=== PATIENT | female | born 1965 | race Hispanic/Latino ===

== ENCOUNTER 2016-06-01 18:46 | Emergency (ER) | payer MEDICARE ==
[2016-06-01 19:08] VITALS: BMI 25.0
[2016-06-01 19:09] VITALS: BP 120/77; PULSE 86; RESP 18; TEMP 98.7; O2SAT 97
--- NOTE | 2016-06-01 19:20 | ED PDOC ---
Arrival/HPI - General Time Seen by Provider: 06/01/16 19:07 Historian: Patient - History of Present Illness Narrative History of Present Illness (Text): 06/01/16 19:22 50 yo F c/o neck pain radiating to the top of her b/l shoulder after she slipped and fell 3 days ago. Denies any headache, LOC, nausea, back pain, shortness of breath, chest pain, numbness, weakness, decrease in range of motion. Patient has no other complaints at this time. PMD Daniella Past Medical History - Provider Review Nursing Documentation Reviewed: Yes - Infectious Disease Hx of Infectious Diseases: None - Tetanus Immunization Tetanus Immunization: Unknown - Past Medical History Past Medical History: No Previous - Cardiac Hx Cardiac Disorders: No Hx Pacemaker: No - Pulmonary Hx Respiratory Disorders: Yes (PLEURISY) Other/Comment: SMOKES 1 PPD OF CIGARETTES - Neurological Hx Neurological Disorder: No - HEENT Hx HEENT Disorder: No - Renal Hx Renal Disorder: No - Endocrine/Metabolic Hx Endocrine Disorders: No - Hematological/Oncological Hx Blood Disorders: No - Integumentary Hx Dermatological Disorder: No - Musculoskeletal/Rheumatological Hx Musculoskeletal Disorders: Yes Hx Falls: No Hx Fractures: Yes (RIGHT FOOT PAIN,COMPRESSION FX.) - Gastrointestinal Hx Gastrointestinal Disorders: No - Genitourinary/Gynecological Hx Genitourinary Disorders: Yes (2 MISCARRIAGE,3 CHILDREN) Other/Comment: BREAST CYST. - Psychiatric Hx Psychophysiologic Disorder: Yes (H/O OF ILLICIT SUBSTANCE ABUSE,ETOH ABUSE SHE IS IN A PROGRAM BEFORE.) Hx Anxiety: Yes Hx Bipolar Disorder: Yes Hx Depression: Yes Hx Emotional Abuse: No Hx Physical Abuse: No Hx Substance Use: Yes (H/O WAS IN A PROGRAM.CLEAN FOR 6-7-YRS) - Anesthesia Hx Anesthesia Reactions: No Hx Malignant Hyperthermia: No - Suicidal Assessment Feels Threatened In Home Enviroment: No Family/Social History - Physician Review Nursing Documentation Reviewed: Yes Family/Social History: No Known Family HX Smoking Status: Current Some Days Smoker Hx Alcohol Use: Yes (H/O WAS IN A PROGRA. CLEAN FOR 6-7 YRS) Hx Substance Use: Yes (H/O WAS IN A PROGRAM.CLEAN FOR 6-7-YRS) Hx Substance Use Treatment: No Allergies/Home Meds Allergies/Adverse Reactions: Allergies prednisone Allergy (Verified 10/08/15 11:51) HEADACHE Home Medications: Home Meds Medication Instructions Recorded Confirmed Clonazepam [Klonopin] 1 mg PO QAM 12/19/11 10/12/15 Albuterol Sulfate [Proair Hfa] 0.09 mg IH TID PRN 05/01/14 10/12/15 buPROPion XL [Wellbutrin XL] 450 mg PO QAM 05/01/14 10/12/15 Budesonide/Formoterol Fumarate 1 aer IH PRN PRN 01/16/15 10/12/15 [Symbicort 160-4.5 Mcg Inhaler] Klonopin 2 mg PO HS 10/08/15 10/12/15 [place] Carbonate 650 mg PO AMHS 10/08/15 10/12/15 Quetiapine Fumarate 450 mg PO HS 10/08/15 10/12/15 Review of Systems - Review of Systems Constitutional: Normal. absent: Fatigue, Weight Change, Fevers Respiratory: Normal. absent: SOB, Cough Cardiovascular: Normal. absent: Chest Pain, Palpitations Musculoskeletal: Normal. absent: Arthralgias, Back Pain Skin: Normal. absent: Rash, Pruritis Neurological: Normal. absent: Headache, Dizziness Physical Exam - Physical Exam Narrative Physical Exam (Text): 06/01/16 19:25 GENERAL APPEARANCE: Patient is awake, alert, oriented x 3, in no acute distress. SKIN: Warm, dry; (-) cyanosis. HEAD: (-) swelling and tenderness, with no palpable bony defect. EYES: (-) conjunctival pallor, (-) scleral icterus, (-) nystagmus. ENMT: Mucous membranes moist. (-) Arevalo's sign. TMs: (-) blood. Nose: (- ) tenderness, (-) rhinorrhea. No oral trauma. Pharynx clear. Airway patent: (-) stridor. Full ROM of mandible without pain. NECK: (-) midline tenderness, (+) paracervical tenderness with spasm, (-) stiffness, (-) lymphadenopathy. CHEST AND RESPIRATORY: (-) chest wall tenderness. Lungs: (-) rales, (-) rhonchi, (-) wheezes; breath sounds equal bilaterally. HEART AND CARDIOVASCULAR: (-) irregularity; (-) murmur, (-) gallop. ABDOMEN AND GI: Soft; (-) tenderness. BACK: (-) tenderness. EXTREMITIES: (-) deformity, (-) tenderness, (-) limitation of motion NEURO AND PSYCH: GCS=15. Mental status as above. Has full memory of episode; house mother: Pupils equal & reactive. EOMI. (-) facial asymmetry. Tongue and uvula midline. Strength 5/5 in all extremities. No gross sensory deficits. DTRs symmetric. Vital Signs Temp Pulse Resp BP Pulse Ox 06/01/16 19:08 98.7 F 86 18 120/77 97 Medical Decision Making ED Course and Treatment: 06/01/16 19:10 50 yo F c/o neck pain x 3 days after she slipped and fell. XR c spine ordered. Given tramadol po and flexeril po. XR cervical spine: (+) fracture of the spinous process of C7, no other acute findings, as read by PA Patient advised that official radiology read of XR is still pending and will call the patient if there is any discrepancy within 24 hours. Case d/w Dr. Bates, neuro surgeon, states that this type of fracture is stable and does not need any further intervention in the emergency room, does recommend a soft collar if the patient wishes to use, however will not improve the healing process and is only to be used for comfort, otherwise safe to d/c for outpatient follow up. X-ray results discussed with the patient. Based on history, exam and diagnostic results plan will be for outpatient follow-up with PMD. Prescription provided. Patient states she fully agrees with and understands discharge instructions. States that she agrees with the plan and disposition. Verbalized and repeated discharge instructions and plan. I have given the patient opportunity to ask any additional questions. Follow up with Dr. Chen 2 days without fail. Advised to take medication as prescribed. Return to the emergency room at any time for any new or worsening symptoms. - RAD Interpretation Radiology Orders: 06/01/16 19:09 CERVICAL SPINE >18YR W/OBLIQUE [RAD] Stat - Medication Orders Current Medication Orders: Discontinued Medications Cyclobenzaprine HCl (Flexeril) 10 mg PO STAT STA Stop: 06/01/16 20:05 Last Admin: 06/01/16 20:19 Dose: 10 MG Tramadol HCl (Ultram) 50 mg PO STAT STA Stop: 06/01/16 20:05 Last Admin: 03/19/17 20:19 Dose: 50 MG - PA / POLYSOMNOGRAPHY TECH / Resident Statement / has reviewed & agrees with the documentation as recorded. Disposition/Present on Arrival - Present on Arrival Any Indicators Present on Arrival: No History of DVT/PE: No History of Uncontrolled Diabetes: No Urinary Catheter: No History Surgical Site Infection Following: None - Disposition Have Diagnosis and Disposition been Completed?: Yes Diagnosis: Cervical strain, Spinous process fracture Disposition: HOME/ ROUTINE Disposition Time: 20:00 Patient Plan: Discharge Condition: GOOD Discharge Instructions (ExitCare): Cervical Strain (DC), Avulsion Fracture (ED) Print Language: CROATIAN Additional Instructions: Thank you for letting us take care of you today. You were treated for cervical strain. The emergency medical care you received today was directed at your acute symptoms. If you were prescribed any medication, please fill it and take as directed. It may take several days for your symptoms to resolve. Return to the Emergency Department if your symptoms worsen, do not improve, or if you have any other problems. Please contact your doctor in 2 days for re-evaluation and follow up. Bring any paperwork you were given at discharge with you along with any medications you are taking to your follow up visit. Our treatment cannot replace ongoing medical care by a primary care provider (PCP) outside of the emergency department. Thank you for allowing the [facility] team to be part of your care today. Prescriptions: Cyclobenzaprine [Cyclobenzaprine HCl] 10 mg PO TID PRN #15 tab PRN Reason: Muscle Spasm traMADol [Ultram] 50 mg PO TID #15 tab Referrals: Brennon Bates MD [Staff Provider] - Follow up with primary Mike Hammond MD [Primary Care Provider] - Follow up with primary Forms: WORK NOTE
--- NOTE | 2016-06-02 11:53 | RAD ---
PROCEDURE: Cervical Spine Radiographs. HISTORY: Pain. COMPARISON: None. FINDINGS: BONES: Alignment maintained. No fracture. Dens Intact. DISC SPACES: Moderate degenerative changes. Narrowing of the intervertebral disc space at C6-C7 associated with large anterior osteophyte formation. SOFT TISSUES: Normal. No prevertebral soft tissue swelling. OTHER FINDINGS: None. IMPRESSION: No evidence of acute displaced fracture or subluxation. Moderate degenerative changes more prominent at C6-C7. Osteophyte formation at C6-C7 associated with mild narrowing of the neural foramina bilaterally.
== END 2016-06-01 20:32 | disposition home or self-care (01) ==
LOC: ED 18:46
DX: S16.1XXA Strain of muscle, fascia and tendon at neck level, initial encounter (principal); S12.600A Unspecified displaced fracture of seventh cervical vertebra, initial encounter for closed fracture; W01.0XXA Fall on same level from slipping, tripping and stumbling without subsequent striking against object, initial encounter

== ENCOUNTER 2016-07-27 14:31 | Observation (INO) | payer MEDICARE ==
[2016-07-27 15:06] VITALS: BMI 24.3
[2016-07-27 16:08] LABS: ADD MANUAL DIFF? NO
[2016-07-27 16:12] LABS: BASO # 0.04 K/mm3 (0.0-2.0); BASO % 0.3 % (0.0-3.0); EOS # 0.2 (0.0-0.7); GRAN # 9.62 (1.4-6.5); GRAN % 79.2 % (50.0-68.0); HEMATOCRIT 37.7 % (36.0-48.0); LYMPH # 1.8 (1.2-3.4); LYMPH % 14.6 % (22.0-35.0); MEAN CORPUSCULAR HEMOGLOBIN 31.7 pg (25.0-35.0); MEAN CORPUSCULAR HGB CONC 33.4 g/dl (31.0-37.0); MEAN PLATELET VOLUME 9.3 fl (7.0-11.0); MONO # 0.5 (0.1-0.6); MONO % 3.9 % (1.0-6.0); PLATELET COUNT 523 10^3/uL (120.0-450.0); WHITE BLOOD COUNT 12.2 10^3/ul (4.5-11.0)
[2016-07-27 16:20] LABS: ALB/GLOB RATIO 1.3 (1.1-1.8); ALKALINE PHOSPHATASE 72 U/L (38-133); ALT/SGPT 31 U/L (7-56); AST/SGOT 24 U/L (15-39); BILIRUBIN,TOTAL 0.7 mg/dL (0.2-1.3); BLOOD UREA NITROGEN 12 mg/dL (7-21); CALCIUM 10.6 mg/dL (8.4-10.5); CARBON DIOXIDE 25 mmol/L (21-33); CHLORIDE 104 mmol/L (98-107); GFR AFRICAN-AMERICAN > 60; GLUCOSE,RANDOM 95 mg/dL (70-110); MAGNESIUM 2.2 mg/dL (1.7-2.2); POTASSIUM 4.1 mmol/L (3.6-5.0); SODIUM 139 mmol/L (132-148); TOTAL PROTEIN 7.7 g/dL (5.8-8.3)
[2016-07-27 16:34] LABS: TROPONIN I < 0.01 ng/mL
[2016-07-27 16:37] LABS: INR 0.98 (0.93-1.08); PARTIAL THROMBOPLASTIN TIME 28.3 Seconds (23.7-30.8)
[2016-07-27 17:17] LABS: PH,URINE 7.5 (4.7-8.0); URINE BILIRUBIN NEGATIVE (NEGATIVE); URINE BLOOD NEGATIVE (NEGATIVE); URINE GLUCOSE (UA) NEGATIVE (NEGATIVE); URINE KETONE NEGATIVE (NEGATIVE); URINE LEUKOCYTE ESTERASE SMALL Leu/uL (NEGATIVE); URINE PROTEIN NEGATIVE mg/dL (<30 mg/dL); URINE UROBILINOGEN 0.2 E.U./dL (<1 E.U./dL)
[2016-07-27 17:29] LABS: URINE APPEARANCE CLEAR (CLEAR)
--- NOTE | 2016-07-27 18:26 | ED PDOC ---
Arrival/HPI <Akash Sutton - Last Filed: 07/27/16 21:17> - General Historian: Patient <Marjorie Mak PA-C - Last Filed: 07/27/16 21:37> - General Chief Complaint: Chest Pain Time Seen by Provider: 07/27/16 14:59 - History of Present Illness Narrative History of Present Illness (Text): 07/27/16 18:23 Patient with past medical history of bipolar disorder and asthma, is also a smoker, reports sudden onset of chest pain described as pressure on the center of her chest radiating to her jaw, which started while she was shopping at [employer] today, her symptoms started 2 hours prior to arrival, here in the emergency room patient has no chest pain at this time only jaw pain. Patient reports having similar symptoms in the past ~1 year ago, states that she was hospitalized here, had a stress test which was normal and was diagnosed with possible pleurisy. Otherwise: (-) diaphoresis, (-) dyspnea, (-) pleuritic component, (-) ripping or tearing quality, (-) positional component, (-) exertional component, (-) dizziness, (-) syncope, (-) nausea, (-) vomiting, (-) calf swelling/pain, (-) recent travel, (-) fever, (-) cough, (-) headache, (-) neuro deficits. PMD Bennie Hammond Cardio: none (Marjorie Mak PA-C) Past Medical History - Provider Review Nursing Documentation Reviewed: Yes - Infectious Disease Hx of Infectious Diseases: None - Tetanus Immunization Tetanus Immunization: Unknown - Reproductive Menopause: Yes - Past Medical History Past Medical History: No Previous - Cardiac Hx Cardiac Disorders: No Hx Pacemaker: No - Pulmonary Hx Respiratory Disorders: Yes (PLEURISY) Other/Comment: SMOKES 1 PPD OF CIGARETTES - Neurological Hx Neurological Disorder: No - HEENT Hx HEENT Disorder: No - Renal Hx Renal Disorder: No - Endocrine/Metabolic Hx Endocrine Disorders: No - Hematological/Oncological Hx Blood Disorders: No - Integumentary Hx Dermatological Disorder: No - Musculoskeletal/Rheumatological Hx Musculoskeletal Disorders: Yes Hx Falls: No Hx Fractures: Yes (RIGHT FOOT PAIN,COMPRESSION FX.) - Gastrointestinal Hx Gastrointestinal Disorders: No - Genitourinary/Gynecological Hx Genitourinary Disorders: Yes (2 MISCARRIAGE,3 CHILDREN) Other/Comment: BREAST CYST. - Psychiatric Hx Psychophysiologic Disorder: Yes (H/O OF ILLICIT SUBSTANCE ABUSE,ETOH ABUSE SHE IS IN A PROGRAM BEFORE.) Hx Anxiety: Yes Hx Bipolar Disorder: Yes Hx Depression: Yes Hx Emotional Abuse: No Hx Physical Abuse: No Hx Substance Use: Yes (H/O WAS IN A PROGRAM.CLEAN FOR 6-7-YRS) - Anesthesia Hx Anesthesia Reactions: No Hx Malignant Hyperthermia: No - Suicidal Assessment Feels Threatened In Home Enviroment: No <Marjorie Mak PA-C - Last Filed: 07/27/16 21:37> Family/Social History - Physician Review Nursing Documentation Reviewed: Yes Family/Social History: Other (palpitations has a defibrillator) Smoking Status: Current Some Days Smoker Hx Alcohol Use: No (H/O WAS IN A PROGRA. CLEAN FOR 6-7 YRS) Hx Substance Use: Yes (H/O WAS IN A PROGRAM.CLEAN FOR 6-7-YRS) Hx Substance Use Treatment: No <Marjorie Mak PA-C - Last Filed: 07/27/16 21:37> Allergies/Home Meds <Akash Sutton - Last Filed: 07/27/16 21:17> <Marjorie Mak PA-C - Last Filed: 07/27/16 21:37> Allergies/Adverse Reactions: Allergies prednisone Allergy (Verified 10/08/15 11:51) HEADACHE Home Medications: Home Meds Medication Instructions Recorded Confirmed Clonazepam [Klonopin] 1 mg PO QAM 12/19/11 07/27/16 Albuterol Sulfate [Proair Hfa] 0.09 mg IH TID PRN 05/01/14 07/27/16 buPROPion XL [Wellbutrin XL] 450 mg PO QAM 05/01/14 07/27/16 Budesonide/Formoterol Fumarate 1 aer IH PRN PRN 01/16/15 07/27/16 [Symbicort 160-4.5 Mcg Inhaler] Klonopin 2 mg PO HS 10/08/15 07/27/16 [place] Carbonate 650 mg PO AMHS 10/08/15 07/27/16 Quetiapine Fumarate 450 mg PO HS 10/08/15 07/27/16 Naproxen [Naprosyn] 500 mg PO BID PRN 07/27/16 07/27/16 Review of Systems - Review of Systems Constitutional: Normal. absent: Fatigue, Weight Change, Fevers ENT: Normal. absent: Hearing Changes, Sinus Congestion Respiratory: Normal. absent: SOB, Cough Cardiovascular: Normal, Chest Pain. absent: Palpitations Gastrointestinal: Normal. absent: Abdominal Pain, Stool Changes, Appetite Changes Genitourinary Female: Normal. absent: Dysuria, Frequency, Hematuria Musculoskeletal: Normal. absent: Arthralgias, Back Pain, Neck Pain Skin: Normal. absent: Rash, Pruritis, Skin Lesions Neurological: Normal. absent: Headache, Dizziness, Focal Weakness <Marjorie Mak PA-C - Last Filed: 07/27/16 21:37> Physical Exam <Akash Sutton - Last Filed: 07/27/16 21:17> <Marjorie Mak PA-C - Last Filed: 07/27/16 21:37> - Physical Exam Narrative Physical Exam (Text): 07/27/16 18:27 GENERAL APPEARANCE: Patient is awake, alert, oriented x 3, in mild painful distress. SKIN: Warm, dry; (-) cyanosis. EYES: (-) conjunctival pallor. ENMT: Mucous membranes moist. (+) Poor dentition, (-) tenderness to percussion of any of the teeth, (-) gingival swelling, (+) mild tenderness with (-) edema of the mandible. NECK: (-) tenderness, (-) stiffness, (-) lymphadenopathy, (-) JVD. CHEST AND RESPIRATORY: (-) rash, (-) chest wall tenderness. Lungs: (-) rales , (-) rhonchi, (-) wheezes, (-) rub; breath sounds equal bilaterally. HEART AND CARDIOVASCULAR: (-) irregularity; (-) murmur, (-) gallop, (-) rub. ABDOMEN AND GI: Soft; (-) distention, (-) tenderness, (-) palpable pulsatile mass. EXTREMITIES: (-) deformity; (-) edema, (-) calf tenderness. (+) distal pulses. NEURO AND PSYCH: Mental status as above. Cranial nerves grossly intact; strength symmetric. (Marjorie Mak PA-C.) Vital Signs Temp Pulse Resp BP Pulse Ox 07/27/16 21:33 70 17 119/67 98 07/27/16 19:04 64 18 116/65 97 07/27/16 17:13 66 18 118/68 97 07/27/16 15:25 68 18 115/71 97 07/27/16 15:05 98.4 F 07/27/16 14:32 73 16 117/76 97 Medical Decision Making <Akash Sutton - Last Filed: 07/27/16 21:17> <Marjorie Mak PA-C - Last Filed: 07/27/16 21:37> ED Course and Treatment: 07/27/16 18:29 51 yo F w/ past medical history of bipolar disorder and asthma, is also a smoker , reports sudden onset of chest pain. Of note, patient does have a family history of palpitations on her mother's side. She reports having a normal stress test one year ago. Previous medical records reviewed, patient was seen in this hospital on 10/08/2015 for chest pain, during that ER visit patient was admitted, during her admission she had a normal stress test performed by Dr. Young. Plan: -- Labs -- property assessment monitor -- EKG -- CXR -- Aspirin -- Reassess and disposition EKG: NSR at 72 bpm, (-) acute ST changes, as read by ANAMARIA. CXR : NAD, as read by ANAMARIA On reevaluation, patient reports continued pain to her jaw with no chest pain, no shortness of breath, no palpitations, no diaphoresis, has no other complaints otherwise. Vital signs stable. Patient given a dose of Toradol IV. Labs reviewed, first troponin is negative. Based on history, exam and diagnostic results plan will be for inpatient telemetry observation. Patient's PMD called. Case discussed with Dr. Nnadmi Hammond, agrees with current plan and treatment. Bridge orders and consult placed. Patient states she fully agrees with and understands the current treatment plan. I have given the patient opportunity to ask any additional questions. (Marjorie Mak PA-C) - Lab Interpretations Lab Results: 07/27/16 14:40 07/27/16 14:40 Lab Results 07/27/16 17:00: Urine Color yellow, Urine Appearance Clear, Urine pH 7.5, Ur Specific [place] 1.010, Urine Protein Negative, Urine Glucose (UA) Negative, Urine Ketones Negative, Urine Blood Negative, Urine Nitrate Negative, Urine Bilirubin Negative, Urine Urobilinogen 0.2, Ur Leukocyte Esterase Small H, Urine RBC TEST NOT PERFORMED, Urine WBC 10 - 15, Ur Epithelial Cells 6 - 8 07/27/16 14:40: Sodium 139, Potassium 4.1, Chloride 104, Carbon Dioxide 25, Anion Gap 14, BUN 12, Creatinine 0.8, Est GFR ( Amer) > 60, Est GFR (Non- Af Amer) > 60, Random Glucose 95, Calcium 10.6 H, Magnesium 2.2, Total Bilirubin 0.7, AST 24, ALT 31, Alkaline Phosphatase 72, Lactate Dehydrogenase 236 L, Total Creatine Kinase 48, Troponin I < 0.01, Total Protein 7.7, Albumin 4.3, Globulin 3.4, Albumin/Globulin Ratio 1.3 07/27/16 14:40: PT 10.6, INR 0.98, APTT 28.3 07/27/16 14:40: WBC 12.2 H D, RBC 3.97, Hgb 12.6, Hct 37.7, MCV 95.0, MCH 31.7, MCHC 33.4, RDW 14.0, Plt Count 523 H, MPV 9.3, Gran % 79.2 H, Lymph % (Auto) 14.6 L, [place] % (Auto) 3.9, Eos % (Auto) 2.0, Baso % (Auto) 0.3, Gran # 9.62 H, Lymph # 1.8, [place] # 0.5, Eos # 0.2, Baso # 0.04 - RAD Interpretation Radiology Orders: 07/27/16 15:49 CHEST PORTABLE [RAD] Stat - Medication Orders Current Medication Orders: Discontinued Medications Aspirin (Aspirin) 325 mg PO STAT STA Stop: 07/27/16 15:50 Last Admin: 07/27/16 16:17 Dose: 325 mg Ketorolac Tromethamine (Toradol) 15 mg IVP STAT STA Stop: 07/27/16 18:11 Last Admin: 07/27/16 18:42 Dose: 15 mg - PA / PROGRAM REVIEW DIRECTOR / Resident Statement /DO has reviewed & agrees with the documentation as recorded. <Akash Sutton - Last Filed: 07/27/16 21:17> - PA / PROGRAM REVIEW DIRECTOR / Resident Statement /DO has reviewed & agrees with the documentation as recorded. <Marjorie Mak PA-C - Last Filed: 07/27/16 21:37> Disposition/Present on Arrival <Akash Sutton - Last Filed: 07/27/16 21:17> - Present on Arrival Any Indicators Present on Arrival: No History of DVT/PE: No History of Uncontrolled Diabetes: No Urinary Catheter: No History of Decub. Ulcer: No History Surgical Site Infection Following: None - Disposition Have Diagnosis and Disposition been Completed?: Yes Disposition Time: 18:00 Patient Plan: Observation (Telemetry) <Marjorie Mak PA-C - Last Filed: 07/27/16 21:37> - Disposition Diagnosis: Chest pain Disposition: HOSPITALIZED Patient Problems: Current Active Problems Problem Status Onset Chest pain Acute Condition: STABLE
--- NOTE | 2016-07-27 22:23 | CP.PCM.PN ---
Subjective - Date & Time of Evaluation Date of Evaluation: 07/27/16 Time of Evaluation: 22:22 - Subjective Subjective: Nurse had called and told that patient had both jaws pain for which she had received toradol in the ER which helped for pain and now requesting same for pain. Toradol 15 mg IV was ordered. I came to see patient. She is now pain free , asleep. Medical record was reviewed. 50 year old white woman was admitted with suden onset of chest pain. Has PMH of asthma, atrial fibrillation, COPD, bipolar disorder, ETOH abuse. Objective - Vital Signs/Intake and Output Vital Signs (last 24 hours): Temp Pulse Resp BP Pulse Ox 98.4 F 70 17 119/67 98 07/27/16 15:05 07/27/16 21:33 07/27/16 21:33 07/27/16 21:33 07/27/16 21:33 - Labs Labs: PT 10.6 Seconds (9.9-11.8) 07/27/16 14:40 INR 0.98 (0.93-1.08) 07/27/16 14:40 APTT 28.3 Seconds (23.7-30.8) 07/27/16 14:40 - Constitutional Appears: No Acute Distress - Head Exam Head Exam: ATRAUMATIC, NORMAL INSPECTION - Eye Exam Eye Exam: Normal appearance - ENT Exam ENT Exam: Normal External Ear Exam - Neck Exam Neck Exam: Normal Inspection - Respiratory Exam Respiratory Exam: NORMAL BREATHING PATTERN - Cardiovascular Exam Cardiovascular Exam: absent: JVD - GI/Abdominal Exam GI & Abdominal Exam: absent: Distended - Rectal Exam Rectal Exam: Deferred - Extremities Exam Extremities Exam: Normal Inspection - Back Exam Back Exam: NORMAL INSPECTION - Neurological Exam Additional comments: Resting. - Skin Skin Exam: Normal Color Assessment and Plan - Assessment and Plan (Free Text) Assessment: A/P Jaws pain. Chest pain. Asthma. COPD. ETOH abuse. Smoker. Continue present management. Toradol 15 mg IV was given.
[2016-07-28 06:23] VITALS: O2SAT 99
--- NOTE | 2016-07-28 07:10 | RAD ---
HISTORY: chest pain COMPARISON: Chest x-ray performed 10/08/15 TECHNIQUE: Chest, one view. FINDINGS: Examination limited by habitus. LUNGS: No focal consolidation. Please note that chest x-ray has limited sensitivity for the detection of pulmonary masses. PLEURA: No significant pleural effusion identified. No definite pneumothorax . CARDIOVASCULAR: Heart size appears top normal. OSSEOUS STRUCTURES: Degenerative changes. VISUALIZED UPPER ABDOMEN: Unremarkable. OTHER FINDINGS: None. IMPRESSION: No focal consolidation, significant pleural effusion, or definite pneumothorax identified.
[2016-07-28] MEDS ORDERED: Nitroglycerin 50mg in D5W 50 MG/250 ML BOTTLE IV ONE (09:28)
[2016-07-28] MEDS ORDERED: Lidocaine 2% Inj (20ml) ONE (09:28)
[2016-07-28] MEDS ORDERED: Midazolam 2 MG/2 ML VIAL ONE (09:50)
--- NOTE | 2016-07-28 10:07 | CON ---
DATE: 07/28/2016 REASON FOR CONSULTATION AND FOLLOWUP: This is a 51-year-old female with a past medical history significant for active tobacco abuse, COPD, bipolar disorder, came in with complaint of chest pain. The patient was in shopping center, and said she felt something heavy sitting on the chest, jaw pain, neck pain and tight, and unable to move neck, severe chest pain, so came to the Emergency Room. PAST MEDICAL HISTORY: Significant for bipolar disorder. SOCIAL HISTORY: Active tobacco abuser, a pack a day. Denies any history of alcohol abuse. FAMILY HISTORY: Strong significant for coronary artery disease especially on in the female side. Everybody has coronary artery disease according to the patient. The patient had a stress test on 10/12/2015 and regular stress test, and prior to that, in 01/2011, was told negative, and then followed this patient, had myocardial stress test perfusion scan, was essentially a normal cardiac perfusion study, anterior defect most likely breast attenuation, and that was Lexiscan. PHYSICAL EXAMINATION: VITAL SIGNS: Temperature afebrile, heart rate 63, blood pressure 104/69. HEENT: PERRLA. Extraocular muscles intact. NECK: Supple. No carotid bruits. No thyromegaly. CHEST: Clear to auscultation. HEART: S1, S2 regular. ABDOMEN: Soft. EXTREMITIES: Clubbing and cyanosis negative. LABORATORY DATA: Blood workup as follows: WBC 12.2, hemoglobin 12.6, hematocrit 37.7, platelet count 523. Chemistry shows sodium 139, potassium 4.0 , chloride 104, carbon dioxide 25, anion gap of 12. BUN 14, creatinine 0.8. Troponin 0.01 negative. EKG showed normal sinus. No acute ST-T changes. RECOMMENDATION: Given the multiple risk factors for coronary artery disease including active tobacco abuse, family history, and typical unstable angina, acute coronary syndrome, suggest cardiac catheterization. The patient had a stress test in 09/2015 - Lexiscan was negative. Suggested to the patient risk/ benefit, alternatives, and also discussed with the patient that the stress test was 10 months ago was negative, and EF-75%. If we repeat, still very classical history, probably best thing to know the definite coronary anatomy that causes unstable symptom because the patient was shopping and suddenly felt the chest pain, heavy sitting on the chest with jaw pain and the neck as well. The patient agreed. We will proceed for cardiac catheterization. We will give 300 mg of Plavix and 325 of aspirin. Risks, benefits, and alternatives discussed with the patient. The patient agreed. We will proceed for cardiac catheterization. Further recommendation after the cardiac catheterization. Thank you, Dr. Hammond, for the allowing me the opportunity in taking care of the patient. Osmin Latham MD cc: [id number] TT: 07/28/2016 10:00:44 Confirmation # [id number] Dictation # [id number] 07/28/2016 09:49:43 JD
[2016-07-28] MEDS ORDERED: Bacitracin 500 Units/gm Oint Foilpak UD TOP ONE (10:31)
[2016-07-28] MEDS ORDERED: Sodium Chloride 0.9% 1,000 ML IV SCH (10:45)
--- NOTE | 2016-07-28 11:05 | PN ---
DATE: 07/28/2016 REASON FOR CONSULTATION AND FOLLOWUP: Acute coronary syndrome, unstable angina , status post cardiac catheterization. BRIEF CLINICAL HISTORY: This is a 51-year-old active tobacco abuse female with bipolar, depression, admitted with unstable angina and acute coronary syndrome, chest pain - somebody sitting on the chest, and radiating to neck and jaw while the patient was shopping and paying to the cashier host/hostess, brought here from there to the hospital. Underwent this morning cardiac catheterization that revealed nonobstructive coronary arteries, essentially normal coronaries, preserved LV function. RECOMMENDATION: Medical treatment is recommended. Suggested: complete cessation of smoking, lipid profile, TSH, hemoglobin A1c. Further recommendation with hospital course. We will follow with you. Thank you, Dr. Hammond, for providing me the opportunity in taking care of the patient. Osmin Latham MD cc: [id number] TT: 07/28/2016 11:04:41 Confirmation # [id number] Dictation # [id number] jn MTDD
--- NOTE | 2016-07-28 11:45 | CARD ---
APPROVED REPORT EKG Measurement Heart [id number] <Conclusion> Normal sinus rhythm with sinus arrhythmia Normal ECG No change
[2016-07-28 12:08] LABS: HEMATOCRIT 36.6 % (36.0-48.0); MEAN CELL VOLUME 95.6 fL (80.0-105.0); MEAN CORPUSCULAR HEMOGLOBIN 31.1 pg (25.0-35.0); MEAN CORPUSCULAR HGB CONC 32.5 g/dl (31.0-37.0); MEAN PLATELET VOLUME 8.6 fl (7.0-11.0); RED CELL DISTRIBUTION WIDTH 14.1 % (11.5-14.5); WHITE BLOOD COUNT 7.2 10^3/ul (4.5-11.0)
[2016-07-28 12:20] LABS: ALB/GLOB RATIO 1.2 (1.1-1.8); ALKALINE PHOSPHATASE 58 U/L (38-133); ALT/SGPT 26 U/L (7-56); AST/SGOT 34 U/L (15-39); BILIRUBIN,TOTAL 0.6 mg/dL (0.2-1.3); BLOOD UREA NITROGEN 17 mg/dL (7-21); CALCIUM 9.5 mg/dL (8.4-10.5); CARBON DIOXIDE 25 mmol/L (21-33); CHLORIDE 106 mmol/L (98-107); GFR AFRICAN-AMERICAN > 60; GLUCOSE,RANDOM 168 mg/dL (70-110); POTASSIUM 3.9 mmol/L (3.6-5.0); SODIUM 139 mmol/L (132-148); TOTAL PROTEIN 6.6 g/dL (5.8-8.3)
[2016-07-28] MEDS ORDERED: Non Formulary Medication (Budesonide/Formoterol Fumarate [Symbicort 160-4.5 Mcg Inhaler] 1 IH PRN (12:26)
[2016-07-28] MEDS ORDERED: Albuterol 0.5% Inhal Sol (2.5 mg/0.5 ml) UD IH PRN (12:26)
[2016-07-28] MEDS ORDERED: Naproxen 550 mg Tab PO PRN (12:26)
[2016-07-28 12:38] VITALS: RESP 18
[2016-07-28 12:57] VITALS: TEMP 98.4
[2016-07-28] MEDS ORDERED: Bacitracin 500 Units/gm Oint Foilpak UD ONE (13:14)
[2016-07-28 14:46] VITALS: BP 118/68; PULSE 75
--- NOTE | 2016-07-28 15:57 | CARD ---
APPROVED REPORT Procedure(s) performed: Left Heart Catheterization HISTORY The patient is a 51 year-old female with a history of : most recent EF: 64%. (EF Method: RADIONUCLIDE), tobacco history() , hypertension , dyslipidemia , Admitted with ACS, unstable angina felt new onset of chest pain, jaw pain and neck pain with heavyness in chest , feeling something sitting on her chest while she was shopping and was sent to ER.Hx of stress test Lexiscan in 09/2015 and was reported normal.. INDICATION The indication(s) include : unstable angina . CASE TECHNIQUE The patient was brought urgently to the Cardiac Catheterization Laboratory in a fasting state and was prepped and draped in a sterile manner. The left wrist was infiltrated with 2% Lidocaine subcutaneous anesthesia. A 6 Fr Glidesheath (Radial) sheath was inserted into the left radial artery without difficulty. Coronary angiography was performed using coronary diagnostic catheters. The left coronary system was accessed and visualized with a Diagnostic ,5 Fr JL 4 catheter. The right coronary system was accessed and visualized with a Diagnostic ,5 Fr JR 3.5 catheter. The left ventricle was accessed and visualized with a pig tail catheter. Left ventricular/Aortic Valve gradient assessed on pullback. Left ventriculogram was performed in WOLFF projection. Closure device was deployed with a Fr TR Band (Regular) without any complications. The patient tolerated the procedure well and there were no complications associated with the procedure. Vessel Analysis The patient's coronary anatomy is right dominant. The left main coronary artery is a large size vessel without significant stenosis. The left main bifurcates to the left anterior descending and circumflex. The left anterior descending artery is a medium size vessel with diffuse calcification noted throughout this vessel and with significant stenosis. very tortous vessel There is a 55% stenosis in the very distal segment. Diffusely diseased The first diagonal branch is a medium size vessel with intimal irregularities and without significant stenosis. The circumflex artery is a medium size vessel without significant stenosis. The first obtuse marginal branch is a medium size vessel without significant stenosis. The second obtuse marginal branch is a small size vessel without significant stenosis. The right coronary artery is a large size vessel without significant stenosis. The right posterior descending artery is a medium size vessel without significant stenosis. The right posterolateral branch is a medium size vessel with intimal irregularities and without significant stenosis. Left Ventricle The left ventricle is normal in size with normal contractility. There was no cardiomyopathy. The left ventricular ejection fraction is estimated to be 65%. The left ventricular end diastolic pressure is 14 mmHg. There was no gradient across the aortic valve upon pullback. Conclusion Non-obstructive CAD, Limited to Very Distal LAD Diffuseky diseased, non flow limiting. Preserved LV FX. EF-65%, EDP-14 mmof Hg. Recommendations Smoking Cessation Aggressive Medical TherapyCardiac Risk Reduction Program Weight Loss Reduction Program CC; Verona Sharif/ Oleg
--- NOTE | 2016-07-29 09:37 | HP ---
HISTORY OF PRESENT ILLNESS: The patient is a 51-year-old female who presents to the Emergency Room c omplaining of chest pain. She describes her chest pain as anterior, mid to left side radiating up to her neck. She is evaluated and admitted. PAST MEDICAL HISTORY: Positive for asthma, atrial fibrillation, COPD, bipolar disorder and ETOH abus e. SOCIAL HISTORY: She smokes approximately 1 pack of cigarettes a day. Avoids alcohol. REVIEW OF SYSTEMS: Otherwise negative. PHYSICAL EXAMINATION: HEAD, EYES, EARS, NOSE AND THROAT: Unremarkable. VITAL SIGNS: Blood pressure is 104/69, heart rate is 70 and she is afebrile. NECK: Supple, with no lymphadenopathy, no goiter. LUNGS: Clear to auscultation and percussion. HEART: Regular. No murmurs are appreciated. ABDOMEN: Soft, nontender with no organomegaly. EXTREMITIES: Free of cyanosis, clubbing or edema. NEUROLOGIC: She is awake, alert, and oriented with no focal neurological signs. ADMITTING LABORATORY STUDIES: Show the white blood cell count to be 12.2, hemoglobin and hematocrit are 12.6 and 37.7, platelet count is 323. Sodium is 139, potassium 4.8, blood urea nitrogen 12, crea tinine 0.8. Nonfasting glucose is 95. Chest x-ray shows no acute disease. EKG shows regular sinus rhythm and troponins are negative x 2. Dr. Latham, the police district switchboard operator, is called for consultation. The patient will probably be undergoing card iac catheterization and hopefully if all is clear, the patient will be discharged to home post-cathet erization. Mike Hammond MD cc: [id number] TT: 07/29/2016 09:36:33 tn
[2016-07-29] MEDS ORDERED: buPROPion 150 mg/24 Hours XL Tab PO SCH (10:00)
[2016-07-29] MEDS ORDERED: LITHIUM CARBONATE 450 MG PO SCH (10:00)
--- NOTE | 2016-08-25 20:38 | DS ---
INDICATIONS: The patient is a 51-year-old female who was admitted to the Emergency Room complaining of chest pain. She described her chest pain being anterior mid to left side radiating to her neck. PAST MEDICAL HISTORY: Positive for asthma, atrial fibrillation, COPD, bipolar disorder and alcohol a buse. She smokes about a pack a day and tries to avoid alcohol. During her hospital stay, she under went coronary catheterization. She was followed by Dr. Latham, the dietary worker. The catheterization revealed nonobstructive coronary arteries and was essentially normal. We therefore decided on medica l treatment. The patient was urged to completely stop smoking. She should be followed closely as an outpatient post-discharge following her lipid profile, thyroid functions, diabetes, etc. The patien t was discharged in improved condition. FINAL DIAGNOSES: 1. Chest pain. 2. History of tobacco abuse. 3. History of alcohol abuse. 4. Asthma. 5. Chronic obstructive pulmonary disease. Mike Hammond MD cc: [id number] TT: 08/25/2016 20:37:40 mn
== END 2016-07-28 15:17 | disposition home or self-care (01) ==
LOC: ED 14:31 → ERH 18:23 → 2RNO 21:47 → 2RSO 07-28 10:38
PROVIDERS: ADMIT Internal Medicine; ATTEND Internal Medicine
DX: I25.110 Atherosclerotic heart disease of native coronary artery with unstable angina pectoris (principal); E78.5 Hyperlipidemia, unspecified; F10.10 Alcohol abuse, uncomplicated; F17.210 Nicotine dependence, cigarettes, uncomplicated; F31.9 Bipolar disorder, unspecified; I10 Essential (primary) hypertension; I24.9 Acute ischemic heart disease, unspecified; I48.91 Unspecified atrial fibrillation; J44.9 Chronic obstructive pulmonary disease, unspecified; J45.909 Unspecified asthma, uncomplicated; Z82.49 Family history of ischemic heart disease and other diseases of the circulatory system; Z87.311 Personal history of (healed) other pathological fracture; Z87.898 Personal history of other specified conditions; F41.9 Anxiety disorder, unspecified
CPT/HCPCS: 36415; 71010; 80053; 81001; 82550; 83615; 83735; 84484; 85025; 85027; 85610; 85730; 87086; 93005; 93458; 96374; 99152; 99285; C1769; C1887; G0378; J1644; J1885; J2250; J3010; J7040; Q9967

== ENCOUNTER 2016-08-21 06:04 | Day surgery (SDC) | payer MEDICARE ==
[2016-08-13 11:32] VITALS: BMI 25.2
[2016-08-21] MEDS ORDERED: Bupivacaine 0.5% Inj(30mL) ONE (07:23)
[2016-08-21] MEDS ORDERED: Dexamethasone 20 mg / 5 ml Inj ONE (07:23)
[2016-08-21] MEDS ORDERED: Lidocaine 1% Inj (20ml) ONE ×2 (07:23→07:33)
[2016-08-21] MEDS ORDERED: Midazolam 2 MG/2 ML VIAL ONE (07:32)
[2016-08-21] MEDS ORDERED: Propofol 10 mg/ml Inj (20 ML) ONE (07:32)
[2016-08-21] MEDS ORDERED: HYDROmorphone 0.5 mg/0.5 ml ISec IVP PRN (11:18)
[2016-08-21] MEDS ORDERED: Oxycodone/Acetaminophen 5/325 mg Tab PO PRN ×2 (11:18)
[2016-08-21] MEDS ORDERED: Lactated Ringer's 1,000 ML IV SCH (11:18)
[2016-08-21] MEDS ORDERED: HYDROmorphone 0.5 mg/0.5 ml ISec ONE (11:24)
--- NOTE | 2016-08-21 11:28 | PCM.SURG1 ---
Surgeon's Initial Post Op Note - Surgeon's Notes Surgeon: Dr. Abdiel Webb, DPM Brake Linings Coater: Dr. Marilee Knapp, PGY1 Type of Anesthesia: General LMA Anesthesia Administered By: Dr. Ashlie MD Pre-Operative Diagnosis: Right foot: hallux hammertoe, plantarflexed 1st metatarsal, plantarflexed 3rd metatarsal, , & 2nd and 4th digit hammertoe deformities. Operative Findings: See Dictation. H: 225 mmHG. Materials: Synthes Velvet BR Interference Screw 6x 12mm; Vilex F- Series 4.0 x 45mm cannulated screw; Vilex S - Series 2.0 x 11 mm cannulated screw, Vilex Hammertoe Implants x2. Injectibles : 15 mLs of 1:1 mixture of 0.5% Marcaine plaine to 1% lidocaine plain (pre- incision); 15 mLs of 1:1 mixture of 0.5% Marcaine plaine to 1% lidocaine plain ( post-procedure); 3mL's of 0.4% dexadron Post-Operative Diagnosis: Same as pre-operative Operation Performed: Right foot: 1) Hallux IPJ arthrodesis 2) 1st metatarsal Burden Tenosuspension with MTPJ capsulotomy and EDB tenotomy 3) 3rd metatarsal Kana Osteotomy 4) 2nd PIPJ arthrodesis 5) 4th digit PIPJ arthrodesis. Specimen/Specimens Removed: None Estimated Blood Loss: EBL {In ML}: 5 Blood Products Given: N/A Drains Used: No Drains Post-Op Condition: Good Date of Surgery/Procedure: 08/21/16 Time of Surgery/Procedure: 11:00
[2016-08-21 12:01] VITALS: RESP 20
--- NOTE | 2016-08-21 12:23 | RAD ---
PROCEDURE: Right foot three views HISTORY: s/p right foot surgery COMPARISON: 01/29/2015 TECHNIQUE: Three views FINDINGS: Postop changes are seen. A longitudinal screws are seen in the 1st 2nd and 4th toe. There is a transverse screw in the head of the 3rd metatarsal. Previous postoperative changes are seen in the head of the 1st metatarsal. IMPRESSION: Postop changes. No complicating factors
[2016-08-21 13:08] VITALS: TEMP 98.4
[2016-08-21 14:11] VITALS: BP 117/60; PULSE 72; O2SAT 96
--- NOTE | 2016-08-21 16:08 | RAD ---
PROCEDURE: Fluoroscopy up to 1 hour HISTORY: IMPLANTS IN TOES COMPARISON: TECHNIQUE: Fluoroscopy was provided in the operating room. 20 seconds of fluoroscopy time was utilized. 4 images were submitted FINDINGS: Screws are seen in the 1st 2nd and 4th toes and head of the 3rd metatarsal IMPRESSION: As above
--- NOTE | 2016-08-22 00:46 | OP ---
PROCEDURE DATE: 08/21/2016 PRIMARY SURGEON: Dr. Abdiel Webb. GIS SCIENTIST: Marilee Knapp, PGY-1. ANESTHESIOLOGIST: Dr. Dailey ANESTHESIA TYPE: General LMA. PREOPERATIVE DIAGNOSES: Right foot: (1) Hallux interphalangeal joint hammertoe contracture (2) plantar flexed 1st metatarsal (3) 2nd and 4th digit hammertoe deformities (4) plantarflexed 3rd metatarsal. POSTOPERATIVE DIAGNOSIS: Right foot: (1) Hallux interphalangeal joint hammertoe contracture (2) plantar flexed 1st metatarsal (3) 2nd and 4th digit hammertoe deformities (4) plantarflexed 3rd metatarsal. PROCEDURE PERFORMED: Right foot: (1) Hallux interphalangeal joint arthrodesis , (2) 1st metatarsal Burden tenosuspension with metatarsophalangeal joint capsulotomy and extensor digitorum brevis tenotomy, (3) 2nd and 4th proximal interphalangeal joint arthrodesis, (4) 3rd metatarsal Kana osteotomy. INDICATIONS: The patient is a 51-year-old female with the above-stated diagnosis. The patient has exhausted all conservative treatment options and now requires surgical intervention for pain involving the above-noted foot deformities of the right foot. The patient signed a consent after careful explanation of risks, benefits, complications, and alternatives. No guarantees were either given nor implied. PREPARATION: The patient was brought into the operating room and placed on the operating room table in a supine position. A time-out was performed for proper identification of the correct patient, foot, and procedure. General anesthesia was commenced, and once anesthesia was confirmed to have been achieved, the right foot was then prepped and draped in the usual sterile manner. Once the sterile field was achieved, sterile pneumatic tourniquet was applied to the right foot in a supramalleolar position on the right ankle. The patient's right foot was then exsanguinate and pneumatic ankle tourniquet was inflated to 225 mmHg and the procedure began. PROCEDURE 1: Prior to the initial incision, th patient received a total of 15mL 's of a 1:1 mixture of 1% lidocaine plain to 0.5% marcaine plain in a local clock type fashion to the right foot. Attention was then directed to the dorsal aspect of the right hallux where a T- type with the transverse head placed distally, overlying the proximal interphalangeal joint with a length of the incision being 4 cm was made overlying the extensor hallucis longus tendon. The incision was then deepened through subcutaneous tissue with care being taken to identify, retract, and avoid all vital neurovascular structures. All bleeders were cauterized and ligated as necessary. At this time, a transverse tenotomy and capsulotomy were performed over the interphalangeal joint of the hallux. The proximal aspect of the extensor hallucis longus tendon was then freed of its capsular and fibrous attachments, and reflected proximally for use later in the procedure. At this time, the head of the proximal phalanx was then freed of its capsular and ligamentous attachments, using a #62 blade. Next, utilizing an oscillating saw, the cartilaginous covering of the proximal phalanx was resected until subchondral bone was visualized. Resected fragment passed from the operative field. Next, utilizing a rotary aristides, the base of the distal phalanx was cleared of all its cartilage at the base, until subchondral bone was visualized. Any excess cartilage was removed using a hand rasp. At this time, anatomical reduction and super position of the bony end of the interphalangeal joint were assessed and were found to be adequate. Next, a 0.045 K-wire was then driven antegrade through the base of the distal phalanx out of the distal tip of the toe. A stab incision was made surrounding the distal violation of the K-wire. At this time, using fluoroscopy, the K- wire was retrograded proximally through the medullary canal of the proximal phalanx. At this time, measurement was performed. A Vilex 4.0 x 4.5 mm cannulated screw was then introduced and compressed the interphalangeal joint with no distal prominence noted once screw secure. At this time, anatomical function and rigidity of arthrodesis were confirmed and found to be satisfactory. Surgical site was then flushed with copious amounts of saline. This incision site was left open to continue with subsequent procedure listed, as follows. PROCEDURE 2: Next, attention was then directed to the distal one-third of the 1st metatarsal where a 6 cm incision was made medial to the extensor hallucis longus tendon usinga #15 blade. This incision was extended to be continuous with the prior incision for the previous stated procedure. This incision was then deepened down through subcutaneous tissue with care being taken to avoid or retract all vital neurovascular structures. All bleeders were cauterized and ligated as necessary. The extensor hallucis longus was freed along the length of the incision of its fibrous and ligamentous attachments, and reflected proximally. At this time, periosteum was reflected off the dorsal medial surface of the 1st metatarsal. Using fluoroscopy, prior Arthrex TightRope fixation canal was appraised with attention being directed to proximal to this TightRope canal, midline to the long axis of bone. Once site of potential tenodesis trephine hole was appreciated, a 2.4 mm single-ended Steinmann pin was used to drill a guide hole from dorsal to plantar through the 1st metatarsal neck, perpendicular to the long axis of the metatarsal. Using fluoroscopy, the location was found to be adequate. At this time, a 5.5 mm reaming hole was superimposed over the 2.4 mm guidewire with reaming carried out through the plantar cortex of the 1st metatarsal. Surgical site was then flushed with copious amounts of saline. At this time, tension was applied using Allen needle to carry free distal end of extensor hallucis longus tendon down to the plantar aspect of the 1st metatarsal through the trephine hole with adequate tension being applied to put foot in desired rectus position with tension. At this time, a Synthes 6.0 x 12.5 mm Velvet BR Interference Screw was introduced to fixate tensioned extensor hallucis longus tendon into place. Interference screw was carried down to be made flush with dorsal surface of 1st metatarsal, noted to not extend past plantar cortex using fluoroscopy. At this point, guide pins and wires were removed and surgical correction was found to be adequate. Surgical site was then flushed with copious amounts of sterile saline. Transverse tenotomy without re-anastomosis of extensor digitorum brevis Transverse dorsal tenotomy was performed over metatarsophalangeal joint in conjunction with dorsal capsulotomy to release noted metatarsal phalangeal joint extension contracture. At this time, periosteum and capsule were reapproximated using 4-0 Vicryl, subcuticular layer was closed with 4-0 Vicryl, skin was closed along entire length from metatarsal to distal hallux using 4-0 nylon. PROCEDURE 3: Longitudinal 2.5 mm ellipsoid incisions were made overlying 2nd and 4th digit proximal interphalangeal joints using #15 blades. Subsequent steps of procedures were done in tandem and in sequence for both digits as follows: Incisions were carried out down to subcutaneous tissue layers with care being taken to avoid all neurovascular structures, which were retracted as needed. Excess bleeders were ligated and cauterized as needed. At this time, a transverse tenotomy was performed overlying the proximal interphalangeal joint and the heads of the proximal phalanx were then freed of its capsular and ligamentous attachments. Next, utilizing the sagittal saw, the head of the proximal phalanx and cartilaginous cover were resected until subchondral bone was visualized. Fragment was passed from the operative field. Next, using a rotary aristides, the base of the middle phalanx was resected of cartilaginous cap until subchondral bone was noted. Excess cartilage was resected using hand rasp until uniform presentation of subchondral bone was noted to adjacent surfaces of bone of the proximal interphalangeal joint. At this time, K-wire was antegraded through the base of the middle phalanx, but did not violate the DIPJ joint. Netezza Architect hole was made with adjacent end into head of proximal phalanx. Next, at this time, the Vilex hammertoe implants measuring 2.5 mm was introduced to the surgical field. Proximal stem of implant was screwed in using remotely piloted vehicle controller hole and K-wire down to secure level. At this time, preset hole of the middle phalanx was used to allow implants on both ends to fuse proximal interphalangeal joint. Anatomical reduction was noted to be adequate at this time and arthrodesis site secure. Incision site was then flushed with copious amounts of sterile saline. Periosteum and capsule were closed using 4-0 Vicryl. Skin was closed using 4-0 nylon. PROCEDURE 4: At this time, attention was then directed to the dorsal aspect of the 3rd digit. Using a #15 blade a longitudinal incision was made lateral to the flexor digitorum hallucis longus tendon body overlying the head of the 3rd metatarsal and metatarsophalangeal joint. Incision measured 4 cm. Incision was extended down through the soft subcutaneous tissue layers with care being taken to identify or retract all vital neurovascular and tendinous structures. All bleeders were cauterized and ligated as necessary. Next, a transverse capsulotomy was performed over the metatarsophalangeal joint where upon the 3rd metatarsal head was freed of its capsular and ligamentous attachments. At this time, a sagittal saw was used to make an osteotomy of the metatarsal head parallel with the weightbearing surface. Freed metatarsal head was then retrograded proximally. Using fluoroscopy, a 0.045 was introduced to stabilize and secure metatarsal head and sagittal plane perpendicular to the long axis of the 3rd metatarsal using fluoroscopy. Once position was found to be adequate and secure, a Vilex 2.0 x 11 mm screw was introduced and used to secure the metatarsal head fragment to the long axis of the 1st metatarsal. Reduction was brought to be adequate and fixation stable. At this time, incision site was then flushed with copious amounts of sterile saline. Periosteal capsule reapproximated using 4-0 Vicryl, subcutaneous tissue reapproximated using 4-0 Vicryl, skin reapproximated using 4-0 nylon. CONCLUSION: Patient received a total of 15mL's of a 1:1 mixture of 1% lidocaine plain to 0.5% marcaine plain in a local clock type fashion to the right foot. Pt received a total of 3mL's of 4mg/ml Decadron in a local block type fashion to the right foot. All incision sites were then dressed with Betadine-soaked Adaptic, 4 x 4 gauze, with 4 x 4 toe spacers placed in between all toes, dressed with Kerlix and Vinod wrap. At this time, tourniquet was let down. POSTOPERATIVE CONDITION: The patient was escorted to the PACU with vital signs stable and neurovascular status intact to the right foot at the level of the digits. The patient will be partial weightbearing as tolerated to heel with CAM boot, and will follow up with Dr. Webb in office. Marilee Knapp DPM Abdiel Webb DPM cc: [id number] TT: 08/22/2016 00:45:29 mary MILES
== END 2016-08-21 14:10 | disposition home or self-care (01) ==
LOC: SDS 06:04
PROVIDERS: ATTEND Podiatrist
DX: M20.41 Other hammer toe(s) (acquired), right foot (principal); M24.574 Contracture, right foot
CPT/HCPCS: 28234; 28270; 28285 ×3; 28755; 73630; 88304; 88311; C1713 ×3; C1769 ×2; C1776; J0690; J1100; J1170; J1885; J2250; J2405; J2704; J3010; J7120 ×2

== ENCOUNTER 2017-04-20 06:04 | Day surgery (SDC) | payer MEDICARE ==
[2017-04-20 06:57] VITALS: BMI 25.2
[2017-04-20] MEDS ORDERED: Lidocaine 1% Inj (20ml) ONE (07:19)
[2017-04-20 07:42] LABS: INR 0.91 (0.93-1.08); PARTIAL THROMBOPLASTIN TIME 32.9 Seconds (25.1-36.5); PROTHROMBIN TIME 10.4 SECONDS (9.4-12.5)
[2017-04-20] MEDS ORDERED: Midazolam 2 MG/2 ML VIAL ONE (07:47)
[2017-04-20] MEDS ORDERED: Propofol 10 mg/ml Inj (20 ML) ONE (07:47)
[2017-04-20] MEDS: Bupivacaine 0.5% Inj(30mL) ONE ×2 (07:54→09:07)
[2017-04-20] MEDS ORDERED: Liquid Adhesive TOP ONE (09:03)
[2017-04-20] MEDS ORDERED: HYDROmorphone 0.5 mg/0.5 ml ISec IVP PRN (09:25)
--- NOTE | 2017-04-20 09:26 | PCM.SURG1 ---
Surgeon's Initial Post Op Note - Surgeon's Notes Surgeon: Dr. Abdiel Webb DPM Room Inspector: Dr. Marco Antonio Reis DPM PGY-1 Type of Anesthesia: IV Sedation, Local Anesthesia Administered By: Dr. Carroll Pre-Operative Diagnosis: Painful hardware of the right 4th digit with re- occurent Hammertoe; Painful dorsal exostosis of right foot Operative Findings: See dictation. M: 3-0 Vicryl, 3-0 monocril. I: Pre-op: 10 cc of 1:1 mixture of 0.5% marcain plain: 1% lidocaine plain; Post-op: 9cc of 0.5 % marcain plain. Ankle torniquet: 72 min Post-Operative Diagnosis: Same Operation Performed: 1. DIPJ fusion of the 4th digit Right foot. 2. Removal of painful hardware from 4th digit of Right foot. 3. Dorsal exostosis removal of the tarsal bone of Right foot Specimen/Specimens Removed: Right 4th digit hardware, Dorsal exostosis from tarsal bone of the right foot Estimated Blood Loss: EBL {In ML}: 0 Blood Products Given: N/A Drains Used: No Drains Post-Op Condition: Good Date of Surgery/Procedure: 04/20/17 Time of Surgery/Procedure: 09:31
[2017-04-20] MEDS ORDERED: Lactated Ringer's 1,000 ML IV SCH (09:30)
[2017-04-20] MEDS ORDERED: Oxycodone/Acetaminophen 5/325 mg Tab PO PRN ×2 (09:37)
[2017-04-20 10:26] VITALS: PULSE 80; RESP 20; TEMP 97.4; O2SAT 99
--- NOTE | 2017-04-20 10:31 | RAD ---
PROCEDURE: Right Foot Radiographs. HISTORY: S/p Right foot surgery COMPARISON: None. FINDINGS: BONES: Hardware is seen in the 1st 2nd and 4th toes as well as the 1st and 3rd metatarsals. There is anatomic alignment JOINTS: Normal. SOFT TISSUES: Normal. OTHER FINDINGS: None. IMPRESSION: As above
[2017-04-20 11:13] VITALS: BP 128/74
--- NOTE | 2017-04-22 08:10 | OP ---
PROCEDURE DATE: 04/20/[address] Marco Antonio Reis on behalf of Dr. Abdiel Webb. PREOPERATIVE DIAGNOSIS: Painful hardware of right fourth digit with recurrent hammer toe and painful dorsal exostosis of right foot. POSTOPERATIVE DIAGNOSIS: Painful hardware of right fourth digit with recurrent hammer toe and painful dorsal exostosis of right foot. PROCEDURE: Removal of painful hardware from fourth right digit, PIPJ fusion of the fourth right digit, dorsal exostosis removal of the tarsal bone of right foot. SURGEON: Abdiel Webb DPM EXHIBIT ELECTRICIAN: Marco Antonio Reis DPM, PGY-1. TYPE OF ANESTHESIA: IV sedation with local. ANESTHESIA ADMINISTERED BY: Dr. Carroll. INDICATIONS: The patient is a 54-year-old female with the above diagnosis. The patient has exhausted all conservative treatment at this time and now requires surgical intervention. The patient has signed a consent after careful explanation of risks, benefits, complications, and alternatives to surgical procedure. No guarantees were given nor implied. N.p.o. status was confirmed prior to taking the patient to the OR. PREPARATION: The patient was brought into the operating room and placed on the operating room table in the supine position. After the induction of IV sedation, the patient received a total of 10 mL of 1:1 mixture of 0.5% Marcaine and 1% lidocaine plain in a local block fashion to the right ankle. Once the local anesthesia was achieved, the foot was then prepped and draped in usual sterile manner. Sterile tourniquet was applied on the right ankle after the proper sterile draping of the patient. Esmarch was used to exsanguinate the patient's right foot. Pneumatic ankle tourniquet was then inflated to 225 mmHg and procedure began. DESCRIPTION OF PROCEDURE: Attention was then drawn to the dorsal aspect of the midfoot overlying the dorsal exostosis where the linear incision was made using a #15 blade. After identifying all anatomical structures, the incision was deepened to the level of bone with care being taken to surrounding vital structures. The dorsal exostosis was visualized at this time using a mallet and an osteotome. The dorsal exostosis was removed and passed to pathology from the operative table. The dorsal aspect was then rasped. The surgical site was then flushed with copious amount of sterile saline. At this time, the subcutaneous layer was re-approximated and brought back together using a 3-0 Vicryl. The skin edges were brought back together using a 3-0 Monocryl. Attention was now drawn to the dorsal aspect of the fourth digit where a semi-elliptical incision was made overlying the hardware. After care being taken to all the surrounding anatomical structures, the incision was deepened to the level of the IPJ where the head of the screw was visualized. A tenotomy was performed to reach the level of phalangeal joint and the tendon was retracted proximally and held with a curved mosquito. Using a Davina bur, the cartilage on the distal aspect of the middle phalanx and the base of the distal phalanx was resected. At this time, using a straight mosquito, a screw was grasped at the head and was removed from the phalanx. Using a wire fire truck driver, 0.045 K-wire was inserted across the level of the IPJ to stabilize the joint. Using a Lawrence handle, the excess scar tissue was removed from the lateral aspect of the phalanx. The removed hardware and scar tissue was then sent to pathology from operative field. At this time, the tendon was re-approximated and was brought back together with the distal portion using 3-0 Vicryl. The subcutaneous layer was re-approximated using a 3-0 Vicryl. The skin edges were brought together using a 3-0 Monocryl. At this time, 9 mL of 0.5% Marcaine was injected to the surgical site. The right foot was then dressed with Betadine-soaked Adaptic, 4x4, Kerlix and Vinod. Immediate capillary refill time was noted to the right foot. The attending was present during the case. POSTOPERATIVE CONDITION: The patient tolerated the anesthesia and procedure well and was escorted to the recovery room with vital signs stable and neurovascular status intact to the right foot. The patient was provided a surgical shoe and was educated to weight bear as tolerated in a surgical shoe. All the postoperative instructions were given to the patient prior to going to the surgery. This patient will follow up with Dr. Webb as an outpatient. Marco Antonio Reis DPM Abdiel Webb DPM [facility] # [phone]
== END 2017-04-20 11:10 | disposition home or self-care (01) ==
LOC: SDS 06:04
PROVIDERS: ATTEND Podiatrist
DX: T84.84XA Pain due to internal orthopedic prosthetic devices, implants and grafts, initial encounter (principal); M20.41 Other hammer toe(s) (acquired), right foot; Y83.1 Surgical operation with implant of artificial internal device as the cause of abnormal reaction of the patient, or of later complication, without mention of misadventure at the time of the procedure
CPT/HCPCS: 20680; 28122; 28285; 36415; 73630; 85610; 85730; 88304; 88311; J0690; J1170; J2250; J2405; J2704; J3010; J7120 ×2

== ENCOUNTER 2017-05-30 12:12 | Inpatient (IN) | payer MEDICARE, MEDICAID, OTHER ==
[2017-05-30 12:13] VITALS: BMI 24.3
[2017-05-30] MEDS ORDERED: Albuterol-Ipratrop 3 mg / 0.5 (3 ml) UD IH STA (12:53)
[2017-05-30] MEDS ORDERED: Sodium Chloride 0.9% 500 ML IV STA (12:53)
--- NOTE | 2017-05-30 13:29 | ED PDOC ---
Arrival/HPI - General Chief Complaint: Chest Pain Time Seen by Provider: 05/30/17 12:44 Historian: Patient - History of Present Illness Narrative History of Present Illness (Text): 05/30/17 13:26 51yr old female presents today with intermittent chest pain x 5 days. pt with hx of previous surgery on right foot on 04/20/17. pt with hx of asthma, + smoker with uri symptoms. pt states over the past 5 days she has been feeling short of breath with exertion. pt states she has been having intermittent heavy pain in the chest wrapping around to the left flank. pt states she also has a burning in the chest and the patient thought she was having "reflux". pt states symptoms worsen when she lays flat. pt denies abdominal pain. no nausea/ vomiting. pt also states she has had sore throat and cough and believes she has bronchitis. pt states she smokes 1/2 pack of cigarettes daily. Past Medical History - Provider Review Nursing Documentation Reviewed: Yes - Travel History Have you recently traveled outside [place] w/in the past 3 mons?: No - Infectious Disease Hx of Infectious Diseases: None - Tetanus Immunization Tetanus Immunization: Unknown - Reproductive Menopause: No - Past Medical History Past Medical History: No Previous - Cardiac Hx Pacemaker: No - Pulmonary Hx Respiratory Disorders: Yes - Neurological Hx Paralysis: No - HEENT Hx HEENT Disorder: No - Renal Hx Renal Disorder: No - Endocrine/Metabolic Hx Endocrine Disorders: No - Hematological/Oncological Hx Blood Transfusions: No Hx Blood Transfusion Reaction: No - Integumentary Hx Dermatological Disorder: No - Musculoskeletal/Rheumatological Hx Musculoskeletal Disorders: Yes - Gastrointestinal Hx Gastrointestinal Disorders: No - Genitourinary/Gynecological Hx Genitourinary Disorders: Yes - Psychiatric Hx Bipolar Disorder: Yes Hx Emotional Abuse: No Hx Physical Abuse: No Hx Substance Use: No - Surgical History Other/Comment: LEFT OOPHORECTOMY, BREAST CYST REMOVED, TONSILLECTOMY - Anesthesia Hx Anesthesia Reactions: No Hx Malignant Hyperthermia: No - Suicidal Assessment Feels Threatened In Home Enviroment: No Family/Social History - Physician Review Nursing Documentation Reviewed: Yes Family/Social History: Unknown Family HX Smoking Status: Heavy Smoker > 10 Cigarettes Daily Hx Alcohol Use: Yes (H/O ETOH, SOBER SINCE 2008) Hx Substance Use: No Hx Substance Use Treatment: No Allergies/Home Meds Allergies/Adverse Reactions: Allergies prednisone Allergy (Severe, Verified 05/30/17 18:32) "I GET VIOLENT" grass pollen Allergy (Verified 05/30/17 18:32) CONGESTION SNEEZING, RUNNY EYES pollen extracts Allergy (Verified 05/30/17 18:32) CONGESTION SNEEZING, RUNNY EYES Home Medications: Home Meds Medication Instructions Recorded Confirmed Clonazepam [Klonopin] 1 mg PO AMHS 12/19/11 05/30/17 Albuterol Sulfate [Proair Hfa] 0.09 mg IH TID PRN 05/01/14 05/30/17 buPROPion XL [Wellbutrin XL] 450 mg PO QAM 05/01/14 05/30/17 Budesonide/Formoterol Fumarate 1 aer IH BID PRN 01/16/15 05/30/17 [Symbicort 160-4.5 Mcg Inhaler] Naproxen [Naprosyn] 500 mg PO BID PRN 07/27/16 05/30/17 Bevington Carbonate [Bevington 900 mg PO QAM 08/13/16 05/30/17 Carbonate 150MG] Quetiapine Fumarate [Quetiapine 450 mg PO HS 08/13/16 05/30/17 Fumarate ER] oxyCODONE/Acetaminophen [Percocet 1 tab PO Q4 PRN 08/21/16 05/30/17 5/325 mg Tab] Ranitidine HCl [Ranitidine HCl] 300 mg PO HS 04/08/17 05/30/17 Review of Systems - Review of Systems Constitutional: absent: Fatigue, Fevers ENT: Sore Throat, Sinus Congestion Respiratory: SOB, Cough Cardiovascular: Chest Pain, Palpitations Gastrointestinal: absent: Abdominal Pain, Nausea, Vomiting, Hematochezia, Hematemesis Genitourinary Female: absent: Dysuria, Frequency, Hematuria Musculoskeletal: absent: Arthralgias, Back Pain, Neck Pain Skin: absent: Rash, Pruritis Neurological: absent: Headache, Dizziness Psychiatric: absent: Depression, Suicidal Ideation Physical Exam Vital Signs Reviewed: Yes Vital Signs Temp Pulse Resp BP Pulse Ox 05/30/17 17:06 71 16 146/96 H 100 05/30/17 15:22 71 18 132/87 99 05/30/17 12:34 98.1 F 79 18 123/81 97 05/30/17 12:20 98.1 F 79 20 123/81 123 H Temperature: Afebrile Blood Pressure: Normal Pulse: Regular Respiratory Rate: Normal Appearance: Positive for: Well-Appearing, Non-Toxic, Comfortable Pain Distress: None Mental Status: Positive for: Alert and Oriented X 3 - Systems Exam Head: Present: Atraumatic Mouth: Present: Moist Mucous Membranes Nose (External): Present: Atraumatic Neck: Present: Normal Range of Motion, Trachea Midline. No: Lymphadenopathy Respiratory/Chest: Present: Clear to Auscultation, Good Air Exchange. No: Respiratory Distress, Accessory Muscle Use, Wheezes, Rhonchi, Tachypneic Cardiovascular: Present: Regular Rate and Rhythm Abdomen: No: Tenderness, Rebound, Guarding Back: Present: Normal Inspection Upper Extremity: Present: Normal ROM Lower Extremity: Present: Normal ROM Neurological: Present: GCS=15 Skin: Present: Warm, Dry, Normal Color. No: Rashes Psychiatric: Present: Alert, Oriented x 3 Medical Decision Making ED Course and Treatment: 05/30/17 13:33 pt with intermittent chest pain and sob x 5 days; smoker with hx of foot surgery 04/20/17. vitals stable cbc; wbc; 11.2 cmp; wnl trop: wnl bnp; wnl ekg; normal sinus rhythm with sinus arrhythmia at 65 bpm normal axis and no ST elevations cxr: no infiltrate/no effusion CT angio; FINDINGS: PULMONARY ARTERIES: There are small filling defect seen at the left lower lobe pulmonary arteries suggestive of pulmonary emboli. No evidence of central pulmonary embolus. The main pulmonary artery is normal in size. AORTA: The thoracic aorta is normal in caliber and shape. LUNGS: Uezv-tl-hojhtdri emphysematous changes and small cystic formation seen predominant in the upper lobes. Mild pulmonary congestion is noted. PLEURAL SPACES: No evidence of significant pleural effusion or pneumothorax. HEART: The heart is mildly enlarged. LYMPH NODES: No lymphadenopathy. BONES, CHEST WALL: Unremarkable. No fracture or destructive lesion OTHER FINDINGS: Unremarkable. IMPRESSION: Small filling defect at the left lower lobe pulmonary arteries suggestive of pulmonary emboli. No evidence of central pulmonary embolus. Zqwa-vw-txfliuwt emphysematous changes. Cardiomegaly and mild pulmonary vascular congestion. pt reassessment; morphine given for pain pt feeling better. pt seen and evaluated by dr. junior; lovenox 70mg sq given for PE. case discussed with Dr. carbajal; will Admit to Tele for PE with chest pain impression; pulmonary embolism, chest pain Admit to remote tele - Lab Interpretations Lab Results: 05/30/17 13:32 05/30/17 13:32 Lab Results 05/30/17 14:00: Urine Color Yellow, Urine Appearance Clear, Urine pH 7.0, Ur Specific [place] 1.015, Urine Protein Negative, Urine Glucose (UA) Negative, Urine Ketones Negative, Urine Blood Negative, Urine Nitrate Negative, Urine Bilirubin Negative, Urine Urobilinogen 0.2, Ur Leukocyte Esterase Negative 05/30/17 13:38: Urine HCG, Qual Negative 05/30/17 13:32: Bevington 1.4 H 05/30/17 13:32: PT 10.8, INR 0.94, APTT 32.1 05/30/17 13:32: Influenza Typ A,B (EIA) Negative for flu a/b 05/30/17 13:32: WBC 11.2 H D, RBC 4.28, Hgb 13.4, Hct 41.2, MCV 96.3, MCH 31.3, MCHC 32.5, RDW 13.9, Plt Count 477 H, MPV 8.6, Gran % 75.0 H, Lymph % (Auto) 17.4 L, Marion % (Auto) 4.3, Eos % (Auto) 2.7, Baso % (Auto) 0.6, Gran # 8.36 H, Lymph # (Auto) 1.9, Marion # (Auto) 0.5, Eos # (Auto) 0.3, Baso # (Auto) 0.07 05/30/17 13:32: Sodium 139, Potassium 4.9, Chloride 105, Carbon Dioxide 25, Anion Gap 14, BUN 13, Creatinine 0.9, Est GFR ( Amer) > 60, Est GFR (Non- Af Amer) > 60, Random Glucose 94, Calcium 10.6 H, Total Bilirubin 0.3, AST 21, ALT 24, Alkaline Phosphatase 87, Lactate Dehydrogenase 211 L, Total Creatine Kinase 59, Troponin I < 0.01, NT-Pro-B Natriuret Pep 43.5, Total Protein 7.1, Albumin 4.3, Globulin 2.8, Albumin/Globulin Ratio 1.5, Lipase 178 - RAD Interpretation Radiology Orders: 05/30/17 12:52 CHEST PORTABLE [RAD] Stat 05/30/17 12:53 ANGIO CHEST PE PROTOCOL [CT] Stat - Medication Orders Current Medication Orders: Discontinued Medications Albuterol/Ipratropium (Duoneb 3 Mg/0.5 Mg (3 Ml) Ud) 3 ml IH STAT STA Stop: 05/30/17 12:54 Last Admin: 05/30/17 13:32 Dose: 3 ml Aspirin (Aspirin Chewable) 81 mg PO STAT STA Stop: 05/30/17 15:58 Last Admin: 05/30/17 16:29 Dose: 81 mg Enoxaparin Sodium (Lovenox) 70 mg SC STAT STA PRN Reason: Protocol Stop: 05/30/17 15:34 Last Admin: 05/30/17 16:29 Dose: 70 mg Subcutaneous Administrations Document 05/30/17 16:29 HI (Rec: 05/30/17 16:29 HI [id number]) Injection Site MAR Injection Site Left Abdomen Charges for Administration # of Subcutaneous Administrations 1 Famotidine (Pepcid) 20 mg IVP STAT STA Stop: 05/30/17 13:25 Last Admin: 05/30/17 13:32 Dose: 20 mg IVP Administration Document 05/30/17 13:32 HI (Rec: 05/30/17 13:33 HI [id number]) Charges for Administration # of IVP Administrations 1 Sodium Chloride (Sodium Chloride 0.9%) 500 mls @ 999 mls/hr IV .Q31M STA Stop: 05/30/17 13:23 Last Admin: 05/30/17 13:30 Dose: 999 mls/hr eMAR Start Stop Document 05/30/17 13:30 HI (Rec: 05/30/17 13:30 HI [id number]) Intravenous Solution Start Date 05/30/17 Start Time 13:30 Morphine Sulfate (Morphine) 4 mg IVP STAT STA Stop: 05/30/17 15:21 Last Admin: 05/30/17 15:39 Dose: 4 mg MAR Pain Assessment Document 05/30/17 15:39 HI (Rec: 05/30/17 15:39 HI [id number]) Pain Reassessment Is this a pain reassessment? No IVP Administration Document 05/30/17 15:39 HI (Rec: 05/30/17 15:39 HI [id number]) Charges for Administration # of IVP Administrations 1 Re-Assess: NAPOLEON Pain Assessment Document 05/30/17 16:39 HI (Rec: 05/30/17 16:46 HI [id number]) Pain Reassessment Is this a pain reassessment? Yes Sleep Is patient sleeping during reassessment? No Presence of Pain Presence of Pain No Disposition/Present on Arrival - Present on Arrival Any Indicators Present on Arrival: No History of DVT/PE: No History of Uncontrolled Diabetes: No Urinary Catheter: No History of Decub. Ulcer: No History Surgical Site Infection Following: None - Disposition Have Diagnosis and Disposition been Completed?: Yes Diagnosis: Chest pain, Pulmonary embolism Disposition: HOSPITALIZED Disposition Time: 16:00 Patient Plan: Admission Patient Problems: Current Active Problems Problem Status Onset Chest pain Acute Pulmonary embolism Acute Condition: FAIR
[2017-05-30 13:37] LABS: BASO # 0.07 K/mm3 (0.0-2.0); BASO % 0.6 % (0.0-3.0); EOS # 0.3 (0.0-0.7); EOS % 2.7 % (1.5-5.0); GRAN # 8.36 (1.4-6.5); HEMOGLOBIN 13.4 g/dL (12.0-16.0); LYMPH # 1.9 (1.2-3.4); LYMPH % 17.4 % (22.0-35.0); MEAN CELL VOLUME 96.3 fl (80.0-105.0); MEAN CORPUSCULAR HEMOGLOBIN 31.3 pg (25.0-35.0); MEAN CORPUSCULAR HGB CONC 32.5 g/dl (31.0-37.0); MEAN PLATELET VOLUME 8.6 fl (7.0-11.0); MONO # 0.5 (0.1-0.6); MONO % 4.3 % (1.0-6.0); RBC 4.28 10^6/uL (3.5-6.1); RED CELL DISTRIBUTION WIDTH 13.9 % (11.5-14.5); WHITE BLOOD COUNT 11.2 10^3/ul (4.5-11.0)
[2017-05-30 13:49] LABS: ALB/GLOB RATIO 1.5 (1.1-1.8); ALBUMIN 4.3 g/dL (3.0-4.8); ALT/SGPT 24 U/L (7-56); AST/SGOT 21 U/L (14-36); BLOOD UREA NITROGEN 13 mg/dL (7-21); CALCIUM 10.6 mg/dL (8.4-10.5); GFR AFRICAN-AMERICAN > 60; GFR NON-AFRICAN AMERICAN > 60; LIPASE 178 U/L (23-300)
[2017-05-30 13:58] LABS: B-TYPE NATRIURETIC PEPTIDE 43.5 pg/mL (0-450)
[2017-05-30 14:02] LABS: TROPONIN I < 0.01 ng/mL
[2017-05-30 14:05] LABS: INR 0.94 (0.93-1.08); PARTIAL THROMBOPLASTIN TIME 32.1 Seconds (25.1-36.5); PROTHROMBIN TIME 10.8 SECONDS (9.4-12.5)
--- NOTE | 2017-05-30 15:10 | CT ---
PROCEDURE: CT Chest with contrast (Pulmonary Angiogram) HISTORY: chest pain/sob COMPARISON: None available. TECHNIQUE: Axial computed tomography images were obtained of the chest in the pulmonary arterial phase of enhancement. Coronal and sagittal reformatted images were created and reviewed. Intravenous contrast dose: 150 mL of Omnipaque 350 Radiation dose: Total exam DLP = 370.69 mGy-cm. This CT exam was performed using one or more of the following dose reduction techniques: Automated exposure control, adjustment of the mA and/or kV according to patient size, and/or use of iterative reconstruction technique. FINDINGS: PULMONARY ARTERIES: There are small filling defect seen at the left lower lobe pulmonary arteries suggestive of pulmonary emboli. No evidence of central pulmonary embolus. The main pulmonary artery is normal in size. AORTA: The thoracic aorta is normal in caliber and shape. LUNGS: Calx-nn-hyyamtnw emphysematous changes and small cystic formation seen predominant in the upper lobes. Mild pulmonary congestion is noted. PLEURAL SPACES: No evidence of significant pleural effusion or pneumothorax. HEART: The heart is mildly enlarged. LYMPH NODES: No lymphadenopathy. BONES, CHEST WALL: Unremarkable. No fracture or destructive lesion OTHER FINDINGS: Unremarkable. IMPRESSION: Small filling defect at the left lower lobe pulmonary arteries suggestive of pulmonary emboli. No evidence of central pulmonary embolus. Gkrv-cy-dfsilgok emphysematous changes. Cardiomegaly and mild pulmonary vascular congestion.
[2017-05-30] MEDS ORDERED: Morphine 4 mg/ml ISec IVP STA (15:20)
[2017-05-30] MEDS ORDERED: Enoxaparin 80 mg Syringe SC STA (15:33)
[2017-05-30 15:51] LABS: URINE BILIRUBIN NEGATIVE (NEGATIVE); URINE BLOOD NEGATIVE (NEGATIVE); URINE GLUCOSE (UA) NEGATIVE (NEGATIVE); URINE LEUKOCYTE ESTERASE NEGATIVE Leu/uL (NEGATIVE); URINE PROTEIN NEGATIVE mg/dL (<30 mg/dL); URINE UROBILINOGEN 0.2 E.U./dL (<1 E.U./dL)
[2017-05-30 15:54] LABS: URINE APPEARANCE CLEAR (CLEAR); URINE COLOR YELLOW (YELLOW)
--- NOTE | 2017-05-30 16:58 | RAD ---
HISTORY: chest pain COMPARISON: Comparison is made with 07/27/2016 FINDINGS: LUNGS: No active pulmonary disease. PLEURA: No significant pleural effusion identified, no pneumothorax apparent. CARDIOVASCULAR: Normal. OSSEOUS STRUCTURES: No significant abnormalities. VISUALIZED UPPER ABDOMEN: Normal. OTHER FINDINGS: None. IMPRESSION: No active disease.
[2017-05-30] MEDS ORDERED: Naproxen 550 mg Tab PO PRN (20:22)
[2017-05-30] MEDS ORDERED: Pneumococcal 23-Valent Vaccine IM ONE (21:31)
[2017-05-30] MEDS ORDERED: Influenza Vaccine 60 mcg/0.5 mL SYR (4YR UP) IM ONE (21:31)
[2017-05-30] MEDS: Oxycodone/Acetaminophen 5/325 mg Tab PO PRN (21:46)
[2017-05-30] MEDS: QUEtiapine 150 mg XR Tab PO SCH (21:46)
[2017-05-31] MEDS: Oxycodone/Acetaminophen 5/325 mg Tab PO PRN ×3 (04:29→20:29)
[2017-05-31] MEDS: Naproxen 550 mg Tab PO SCH ×2 (10:20→17:44)
[2017-05-31] MEDS: buPROPion 150 mg/24 Hours XL Tab PO SCH (10:26)
[2017-05-31] MEDS ORDERED: Albuterol-Ipratrop 3 mg / 0.5 (3 ml) UD IH PRN (10:28)
--- NOTE | 2017-05-31 10:37 | CARD ---
APPROVED REPORT EKG Measurement Heart [id number] KS [id number] <Conclusion> Normal sinus rhythm with sinus arrhythmia Possible Left atrial enlargement PRWP T wave now upright in V 3, c/w ECG 04/08/17
--- NOTE | 2017-05-31 10:44 | CARD ---
APPROVED REPORT EKG Measurement Heart [id number] ME [id number] <Conclusion> Normal sinus rhythm Possible Left atrial enlargement PRWP V 1 - 5 NSSTW changes No change
[2017-05-31 11:44] LABS: D DIMER < 200 ng/mL (0-243); PARTIAL THROMBOPLASTIN TIME 32.4 Seconds (25.1-36.5)
[2017-05-31] MEDS: Heparin25000 units/250ml 1/2NS 25,000 UNITS/250 ML BAG IV PRN (12:29)
[2017-05-31 12:52] LABS: INR 0.94 (0.93-1.08); PROTHROMBIN TIME 10.8 SECONDS (9.4-12.5)
[2017-05-31] MEDS: Budesonide 0.5 mg/2 ml Inhal Susp UD IH SCH (20:04)
--- NOTE | 2017-05-31 21:14 | US ---
HISTORY: Leg pain and swelling. Evaluate for DVT PHYSICIAN(S): Abdiel Hale MD. TECHNIQUE: Duplex sonography and color-flow Doppler with graded compression were used to evaluate the deep venous systems of both lower extremities. FINDINGS: The visualized deep venous systems of both lower extremities are sonographically normal and compressible. Normal wave forms and augmentation are seen. There is no sonographic evidence for deep venous thrombosis in the visualized segments of both lower extremities. IMPRESSION: No sonographic evidence for deep venous thrombosis in the visualized segments of both lower extremities.
--- NOTE | 2017-05-31 22:19 | CON ---
DATE: 05/31/2017 HISTORY OF PRESENT ILLNESS: Ms. Chapin is a 51-year-old woman who came to the emergency room yesterday with a 5-day history of pleuritic chest pain. She states that it hurts on the left side when taking a deep breath. She has a history of asthma for which she takes Symbicort and ProAir. She did not know if this was related to that. She tried to let this go until the pain became unbearable and she became short of breath. She came to the emergency room for further evaluation and treatment. The patient has a history of asthma on Symbicort and ProAir as described above. She continues to be a smoker of one pack a day for many years. Pulmonary function studies have not been done in the recent past. No cough or expectoration. There is no fever, no chills. No hemoptysis. No additional symptoms are noted at this time. PAST HISTORY: Patient has a history of asthma as described above. She also has a history of disability due to psychiatric illness. She complains of being bipolar. She is on medication. She is doing quite well but no longer works. SOCIAL HISTORY: The patient continues to smoke 1 pack of cigarettes daily for many years. She has no occupational exposure. No illicit drug use. No travel history. SURGERIES: Of note, recent five sub-surgeries on her lower extremity. Her last surgery was about approximately 1 month ago. ALLERGIES: PREDNISONE, ALTHOUGH SHE DOES TAKE SYMBICORT INHALED CORTICOSTEROID WITHOUT ANY PROBLEM. GRASS POLLEN. HOME MEDICATIONS: Include Wellbutrin, Symbicort, Naprosyn, lithium, Percocet, ranitidine, Klonopin. REVIEW OF SYSTEMS: Pleuritic chest pains, shortness of breath. No urinary frequency, no vomiting, no skin rashes, no memory loss. All other systems negative. FAMILY HISTORY: Please note that full questioning of family history has been done to exclude bleeding diathesis, hypercoagulable state or other problems. Patient states that there is coronary artery disease and several myocardial infarctions in her family in the past. PHYSICAL EXAMINATION: GENERAL: She is resting comfortably, but still complaining of pain in her left back. VITAL SIGNS: Stable. She is afebrile at 98.6, respiratory rate 16, pulse 80, blood pressure 130/80, pulse oximetry 100%. NECK: Supple. No jugular venous distention. No bruit, no mass, no lymphadenopathy. HEENT: Normocephalic, atraumatic. Eyes: PERRLA. EOMs full. Conjunctivae pink. CARDIOVASCULAR: Regular rhythm. S1, S2 without murmur, gallop or rub. RESPIRATORY: Lungs are clear to percussion and auscultation. There is prolonged expiratory phase with increased AP diameter. No wheezing is appreciated. ABDOMEN: Soft. Bowel sounds are normoactive without mass, guarding, rebound or organomegaly. EXTREMITIES: Reveal no clubbing, cyanosis or edema. There is no Homans' sign. NEUROLOGIC: Exam is normal. Motor, sensory and coordination normal. MENTAL STATUS: Normal. SKIN: Warm and dry. No rash, excoriations. No lymphadenopathy is present. There are no nodes palpable in the supraclavicular notch, in the cervical, inguinal, or axillary areas. LABORATORY FINDINGS: Laboratory studies showed the following: White count of 11,000, platelet count 477,000. Coagulations: PT 10.8, PTT 32. Chemistries: Calcium is 10.6, LDH 211. Urine: Normal toxicology, lithium 1.4. Serology fluid negative. RADIOLOGY: Chest x-ray shows no pulmonary infiltrates. On CAT scan CT angio was reviewed. There is evidence of small pulmonary emboli as per radiology. There are also bullous changes consistent with COPD. Hyperinflation is noted. Cystic formation as the radiologist describes filling defects in the left lower lobe in the area of the patient's pain. EKG: Sinus tachycardia, nonspecific ST-T wave changes. CLINICAL IMPRESSION: 1. Left-sided chest pain, pleuritic in nature. 2. Pulmonary emboli. 3. Rule out deep vein thrombosis. 4. Status post surgery of the foot. 5. Hypercoagulable state. 6. Asthma. 7. Nicotine dependence, smoking history. 8. The patient probably has chronic obstructive pulmonary disease with air trapping as well. Cystic changes noted on the CAT scan. PLAN: For the meantime, the patient has been started on albuterol and Atrovent with inhaled corticosteroids in the future. She will probably require a LAMA for further evaluation. Once the pulmonary emboli have resolved, a complete pulmonary function study would be in order. At this time, the patient will be started on heparin drip, monitoring PT and PTT now and through the course of her hospitalization, oral agents can be used in the next 48 hours. The patient will be followed by Dr. Black, my associate, starting tomorrow morning. We will discuss with him appropriate workup and treatment, so that the patient improves and can be free of her symptoms and newly diagnosed pulmonary emboli. Pasquale Martin MD MTDD
[2017-05-31] MEDS: QUEtiapine 150 mg XR Tab PO SCH (22:39)
[2017-06-01] MEDS: Budesonide 0.5 mg/2 ml Inhal Susp UD IH SCH ×2 (07:40→20:06)
[2017-06-01] MEDS: Arformoterol 15 mcg/2 ml Inh Sol IH SCH ×2 (07:40→20:06)
[2017-06-01] MEDS: buPROPion 150 mg/24 Hours XL Tab PO SCH (09:27)
[2017-06-01] MEDS: Naproxen 550 mg Tab PO SCH (09:28)
[2017-06-01] MEDS: Oxycodone/Acetaminophen 5/325 mg Tab PO PRN ×3 (09:28→21:12)
--- NOTE | 2017-06-01 10:51 | PN ---
DATE: 06/01/2017 PULMONARY NOTE SUBJECTIVE: The patient appears very comfortable this morning. She is not short of breath at rest. She has no chest pain. PHYSICAL EXAMINATION: VITAL SIGNS: Temperature is 98.5, pulse 70, respirations 18, blood pressure 113/77. Oxygen saturation on room air is 98%. HEENT: Normocephalic, atraumatic. No JVD. CARDIOVASCULAR: Positive S1, S2. No S3 gallop. LUNGS: Clear bilaterally. EXTREMITIES: No clubbing, cyanosis or edema. Calves are nontender to palpation. GI: Abdomen is soft, nontender and nondistended. Bowel sounds are positive. SKIN: No acute rash. NEUROLOGIC: Limited at the present time. IMPRESSION: 1. Pulmonary embolism - left lower lobe. 2. Asthma. 3. Chronic obstructive pulmonary disease. 4. Status post recent surgery - right foot. PLAN: The patient appears very comfortable this morning. She is not short of breath at rest. She does state to feeling much. much better overall. On physical exam, her lungs are clear. Oxygen saturation on room air is 98%. I will continue with the inhaled pulmicort, and add inhaled brovana this morning. The patient remains on the heparin protocol plus Coumadin therapy. Repeat a.m. labs are pending. Hypercoagulability workup has been ordered. Cardiology evaluation is also ordered. Clinical status of the patient is significantly improved overall. I will discuss the above with the attending physician. Ike Black MD MTDD
[2017-06-01 11:33] LABS: INR 1.08 (0.93-1.08); PARTIAL THROMBOPLASTIN TIME 69.9 Seconds (25.1-36.5); PROTHROMBIN TIME 12.4 SECONDS (9.4-12.5)
[2017-06-01] MEDS: Heparin25000 units/250ml 1/2NS 25,000 UNITS/250 ML BAG IV PRN (13:10)
[2017-06-01] MEDS: QUEtiapine 150 mg XR Tab PO SCH (21:38)
--- NOTE | 2017-06-02 00:22 | CON ---
DATE: 06/01/2017 SERVICE: Cardiology. REASON FOR THE CONSULTATION: Chest pain, history of coronary artery disease, possible PE. BRIEF CLINICAL HISTORY: This is a 51-year-old female with a past medical history significant for asthma, COPD, coronary artery disease, history of psychiatric disorder, came in with complaint of shortness of breath and pleuritic type chest pain. Patient had CT angio that is suspicious for a small filling defect of the left lower lobe pulmonary artery suggestive of pulmonary emboli. No evidence of central pulmonary emboli. [id number] emphysematous changes. PAST MEDICAL HISTORY: Significant for bipolar disorder, coronary artery disease, status post cardiac catheterization that revealed nonobstructive coronary artery disease dated 07/28/2016, medical treatment recommended. PREVIOUS CARDIAC WORKUP: As follows: Patient had a stress test, 10/12/2015, that shows essentially normal myocardial perfusion study. Ejection fraction 64%, breast attenuation. Patient admitted with unstable angina on 07/27/2013, having multiple risk factors for coronary artery disease, patient underwent cardiac catheterization that revealed nonobstructive coronary artery disease, diffusely diseased LAD disease, non-flow limiting, preserved LV function, ejection fraction 65%, EDP was in the range of 45%. LAD shows distal 55% stenosis, but no focal flow-limiting stenosis. Medical treatment recommended including a complete cessation of smoking, aggressive medical treatment and weight reduction program was suggested. SOCIAL HISTORY: Patient has active tobacco abuse, smokes one pack a day the whole life. Denies any history of . PAST SURGICAL HISTORY: Denies any history of surgery. CURRENT MEDICATIONS: Patient at home was taking Symbicort, albuterol, Naprosyn, lithium for bipolar disorder. REVIEW OF SYSTEMS: As per HPI. PHYSICAL EXAMINATION: VITAL SIGNS: As follows: Temperature afebrile, heart rate 73, blood pressure 127/89. HEENT: PERRLA. Extraocular muscles intact. NECK: Supple. No carotid bruit or thyromegaly. CHEST: Clear to auscultation. HEART: S1, S2 regular. ABDOMEN: Soft. EXTREMITIES: Clubbing and cyanosis negative. LABORATORY DATA: Blood workup as follows: WBC 11.8, hemoglobin 13.5, hematocrit 41.2, platelet count 477. Chemistry shows sodium 139, potassium 4.9, chloride of 105, carbon dioxide 25, anion gap of 13, BUN 14, creatinine 0.9, troponin 0.01 x negative. IMPRESSION: No evidence of acute myocardial infarction; history of cardiac catheterization on 07/28/2016, nonobstructive coronary artery disease. CT angio suggestive of left lower lobe artery pulmonary emboli, active tobacco abuse, bipolar disorder. RECOMMENDATIONS: Patient is currently on heparin. We will discontinue heparin and switch over to Eliquis 10 mg b.i.d. for 7 days followed by 5 mg daily. We will get echo to assess LV function and RVSP. We will follow with you. Thank you for providing us the opportunity in taking care of the patient. Osmin Latham MD
[2017-06-02 07:27] LABS: INR 1.2 (0.93-1.08); PARTIAL THROMBOPLASTIN TIME 82.9 Seconds (25.1-36.5); PROTHROMBIN TIME 13.9 SECONDS (9.4-12.5)
[2017-06-02] MEDS: Budesonide 0.5 mg/2 ml Inhal Susp UD IH SCH (08:12)
[2017-06-02] MEDS: Arformoterol 15 mcg/2 ml Inh Sol IH SCH (08:12)
[2017-06-02] MEDS: Oxycodone/Acetaminophen 5/325 mg Tab PO PRN ×2 (08:36→14:41)
--- NOTE | 2017-06-02 09:49 | PN ---
DATE: 06/02/2017 PULMONARY NOTE SUBJECTIVE: The patient appears very comfortable at rest. She is not short of breath. PHYSICAL EXAMINATION VITAL SIGNS: Temperature is 97.3, pulse is 79, respirations 18, blood pressure 107/73. Oxygen saturation on room air is 98%. HEENT: Normocephalic, atraumatic. No JVD. CARDIOVASCULAR: Positive S1, S2. No S3 gallop. LUNGS: Clear bilaterally. EXTREMITIES: No clubbing, cyanosis or edema. Calves are nontender to palpation. GI: Abdomen is soft, nontender and nondistended. Bowel sounds are positive. SKIN: No acute rash. NEUROLOGIC: Limited at the present time. IMPRESSION: 1. Pulmonary embolism - left lower lobe. 2. Asthma. 3. Chronic obstructive pulmonary disease. 4. Status post recent surgery - right foot. PLAN: The patient appears very comfortable this morning. She is not short of breath at rest. She does state to feeling much better overall. On physical exam, her lungs remain clear. Oxygen saturation on room air is now 98%. I will continue with the current nebulizer treatments and inhaled steroids for now. The patient remains on the heparin protocol plus Coumadin therapy. Repeat a.m. labs are pending. The clinical status of the patient is significantly improved overall. I will discuss the above with the attending physician. Ike Black MD MTDPraneeth
[2017-06-02] MEDS: buPROPion 150 mg/24 Hours XL Tab PO SCH (10:05)
[2017-06-02] MEDS: Naproxen 550 mg Tab PO SCH (10:05)
--- NOTE | 2017-06-02 12:34 | PN ---
DATE: 06/02/2017 REASON FOR THE CONSULTATION AND FOLLOWUP: Chest pain; coronary artery disease, nonobstructive; possible PE. SUBJECTIVE: The patient denies any chest pain, shortness of breath, or palpitations. Feels a lot better, on IV heparin and Coumadin. PHYSICAL EXAMINATION: GENERAL: Not in apparent distress, lying flat on the bed. VITAL SIGNS: Temperature afebrile, heart rate 79, blood pressure 107/73. HEENT: PERRLA. Extraocular muscles intact. NECK: Supple. No carotid bruit or thyromegaly. CHEST: Clear to auscultation. HEART: S1, S2 regular. ABDOMEN: Soft. EXTREMITIES: Clubbing and cyanosis negative. LABORATORY DATA: WBC 11.2, hemoglobin 13.4, hematocrit 41.2, platelet count 477. Chemistry shows sodium as of 05/30/2017, 139; potassium 4.9; chloride of 105; carbon dioxide 25; anion gap of 14; BUN 13; creatinine 0.9. Troponin 0.01. Coagulation profile: PT 13.9, INR 1.2, PTT 82.9. The patient on IV heparin. IMPRESSION: Acute pulmonary embolism by CT, suggestive of left lower lobe pulmonary embolism; active tobacco abuse; bipolar disorder; nonobstructive coronary artery disease, status post cardiac catheterization on 07/28/2016. Distal left anterior descending diffusely diseased. No focal stenosis. Preserved left ventricular function. Ejection fraction is 65%. End diastolic pressure was in the range of 25. Medical treatment recommended and complete cessation of smoking was recommended at that time. The patient is currently on heparin, Coumadin was started at 10 mg yesterday, 10 mg was given by Dr. Hammond. Recommend was to start 7.5 mg. Once the INR is therapeutic 2 and above, the patient can be discharged home. Awaiting for echocardiogram to assess the right ventricular systolic pressure and right ventricular size. As mentioned, the patient had a cardiac catheterization on 07/28/2016. The patient admitted with unstable angina, nonobstructive coronary artery disease. No evidence of acute myocardial infarction at this time. We will follow up PT, INR tomorrow and CBC, SMA-7 in the morning. Initially, plan was to start novel anticoagulation Eliquis, but since the patient is already on Coumadin, we will continue Coumadin and we will hold Eliquis. We will give 7.5 mg today. PT, INR in the morning. The patient's TSH came was 7.08, LDL 71, HDL 97, and triglycerides 119. We will also start low dose of Synthroid and we will follow with you. Osmin Latham MD
[2017-06-02 18:32] VITALS: BP 112/75; PULSE 78; RESP 18; TEMP 98.9; O2SAT 95
[2017-06-03] MEDS ORDERED: Levothyroxine 25 MCG TAB PO SCH (06:00)
--- NOTE | 2017-06-03 20:52 | CARD ---
APPROVED REPORT EXAM: Two-dimensional and M-mode echocardiogram with Doppler and color Doppler. INDICATION CP, RVSP, PULMONARY EMBOLISM 2D DIMENSIONS Left Atrium (2D)4.0 (1.6-4.0cm)IVSd0.9 (0.7-1.1cm) LVDd3.9 (3.9-5.9cm)PWd1.1 (0.7-1.1cm) LVDs2.7 (2.5-4.0cm)FS (%) 29.8 % LVEF (%)57.5 (>50%) M-Mode DIMENSIONS Aortic Root3.20 (2.2-3.7cm)Aortic Cusp Exc.1.80 (1.5-2.0cm) Aortic Valve AoV Peak Ifgqwqqa991.0cm/Amy Peak GR.6mmHg Mitral Valve MV E Qohfbzoj83.8cm/sMV A Rftxlvpw40.7cm/sE/A ratio0.8 TDI Lateral E' Peak V8.97cm/sMedial E' Peak V6.63cm/sE/Lateral E'6.0 E/Medial E'8.1 Pulmonary Valve PV Peak Igrklewr95.4cm/sPV Peak Grad.3mmHg Tricuspid Valve TR Peak Tfhobjvp599jk/sRAP NWMTGIMQ35tlNxNN Peak Gr.25mmHg [id number] LEFT VENTRICLE The left ventricle is normal size. There is normal left ventricular wall thickness. The left ventricular function is normal.[id number] There is borderline hypokinesis in the apical anterior wall. Transmitral Doppler flow pattern is Grade III-reversible restrictive diastolic dysfunction. No left ventricle thrombus noted on this study. There is no ventricular septal defect visualized. There is no left ventricular aneurysm. There is no mass noted in the left ventricle. RIGHT VENTRICLE The right ventricle is normal size. There is normal right ventricular wall thickness. The right ventricular systolic function is normal. ATRIA The left atrium is borderline dilated. The right atrium size is normal. The atrial septum is aneurysmal. AORTIC VALVE The aortic valve is thickened but opens well. No aortic regurgitation is present. There is no aortic valvular stenosis. There is no aortic valvular vegetation. MITRAL VALVE The mitral valve is thickened but opens well. Mitral regurgitation is trace. There is no mitral valve stenosis. There is no evidence of mitral valve prolapse. TRICUSPID VALVE The tricuspid valve leaflets are thickened , but open well. There is trace to mild tricuspid regurgitation.RVSP-35 mmof Hg There is no tricuspid valve stenosis. There is no tricuspid valve prolapse or vegetation. PULMONIC VALVE The pulmonary valve is normal in structure. There is no pulmonic valvular regurgitation. There is no pulmonic valvular stenosis. GREAT VESSELS The aortic root is normal in size. The ascending aorta is normal in size. The pulmonary artery is normal. The IVC is normal in size and collapses >50% with inspiration. PERICARDIAL EFFUSION There is no pleural effusion. There is a trace circumferential pericardial effusion. <Conclusion> The left ventricle is normal size. There is normal left ventricular wall thickness. The left ventricular function is normal.[id number] Mitral regurgitation is trace. There is trace to mild tricuspid regurgitation.RVSP-35 mmof Hg There is a trace circumferential pericardial effusion.
--- NOTE | 2017-06-04 05:07 | DS ---
HOSPITAL COURSE: This is a 51-year-old woman I have known for many years in the office with asthma, COPD, history of intermittent AFib, who presents to this hospital with pleuritic chest pain, and was found to have a pulmonary embolus. She was treated with IV heparin. Pulmonary consultation was appreciated, and extensive hypercoagulable state workup was ordered, although most likely source is immobilization from the boots she was wearing after podiatry surgery and her continued tobacco use. She is now much more comfortable. Coumadin has been started but has been slow to come to the therapeutic range. She is on IV heparin; Coumadin continues. I spoke with her today. Apparently, Eliquis is covered by her prescription plan. Therefore as an alternative to staying in the hospital until her Coumadin coagulation becomes therapeutic, we will begin Eliquis. Samples were given to the patient's during his office visit earlier today. We will discontinue the heparin. She can leave the hospital. Start the Eliquis tonight at 10 mg b.i.d. x5 days, then 5 mg b.i.d. Follow up in the office in one week. FINAL DISCHARGE DIAGNOSES: 1. Pulmonary embolus. 2. Asthma. 3. History of paroxysmal atrial fibrillation. 4. History of substance abuse. 5. Bipolar disorder. Bennie Hammond MD
== END 2017-06-02 18:52 | disposition home or self-care (01) | DRG 176 ==
LOC: ED 12:12 → ERH 15:54 → 3RSO 17:48
PROVIDERS: ADMIT Internal Medicine; ATTEND Internal Medicine
PROC: 3E0F7GC Introduction of Other Therapeutic Substance into Respiratory Tract, Via Natural or Artificial Opening (ICD-10-PCS; principal; 2017-05-31)
DX: I26.99 Other pulmonary embolism without acute cor pulmonale (principal); D68.59 Other primary thrombophilia; I25.10 Atherosclerotic heart disease of native coronary artery without angina pectoris; J44.9 Chronic obstructive pulmonary disease, unspecified; F31.9 Bipolar disorder, unspecified; F17.210 Nicotine dependence, cigarettes, uncomplicated; Z79.51 Long term (current) use of inhaled steroids

== ENCOUNTER 2017-06-12 14:55 | Emergency (ER) | payer MEDICAID, MEDICARE, OTHER ==
[2017-06-12] MEDS ORDERED: Oxycodone/Acetaminophen 5/325 mg Tab PO STA (15:25)
[2017-06-12] MEDS ORDERED: Tmp-Smz 800 mg-160 mg DS Tab PO STA (15:28)
--- NOTE | 2017-06-12 15:37 | ED PDOC ---
Arrival/HPI - General Chief Complaint: Lower Extremity Problem/Injury Time Seen by Provider: 06/12/17 15:08 Historian: Patient - History of Present Illness Narrative History of Present Illness (Text): 06/12/17 15:34 52yo female with PMHx of Pulmonary embolism and s/p hallux valgus surgical repair present with complaint of pain and swelling to her left foot. Patient states surgery was done 4weeks ago. states she noticed swelling and pain to the surgical foot/site today. She denies fever, chills, nausea, vomiting, calf pain , SOB, diaphoresis, any other complaint. Past Medical History - Provider Review Nursing Documentation Reviewed: Yes - Infectious Disease Hx of Infectious Diseases: None - Tetanus Immunization Tetanus Immunization: Unknown - Past Medical History Past Medical History: No Previous - Cardiac Hx Heart Murmur: Yes Hx Pacemaker: No - Pulmonary Hx Respiratory Disorders: Yes (SMOKED CIGARETTES/PPD QUIT,PLEURISY,PE 05-30-17) Hx Pulmonary Embolism: Yes - Neurological Hx Neurological Disorder: No - HEENT Hx HEENT Disorder: No - Renal Hx Renal Disorder: No - Endocrine/Metabolic Hx Endocrine Disorders: No - Hematological/Oncological Hx Blood Disorders: No - Integumentary Hx Dermatological Disorder: No - Musculoskeletal/Rheumatological Hx Musculoskeletal Disorders: Yes (HAMMERTOE,RIGHT FOOT SX-BUNIONECTOMY) Hx Falls: No - Gastrointestinal Hx Gastrointestinal Disorders: Yes Hx Gall Bladder Disease: Yes - Genitourinary/Gynecological Hx Genitourinary Disorders: Yes - Psychiatric Hx Bipolar Disorder: Yes Hx Emotional Abuse: No Hx Physical Abuse: No Hx Substance Use: No - Surgical History Other/Comment: LEFT OOPHORECTOMY, BREAST CYST REMOVED, TONSILLECTOMY - Anesthesia Hx Anesthesia Reactions: No Hx Malignant Hyperthermia: No - Suicidal Assessment Feels Threatened In Home Enviroment: No Family/Social History - Physician Review Nursing Documentation Reviewed: Yes Family/Social History: Unknown Family HX Smoking Status: Former Smoker Hx Alcohol Use: Yes (H/O SOBER SINCE 2008) Hx Substance Use: No Hx Substance Use Treatment: No Allergies/Home Meds Allergies/Adverse Reactions: Allergies prednisone Allergy (Severe, Verified 05/30/17 18:32) "I GET VIOLENT" grass pollen Allergy (Verified 05/30/17 18:32) CONGESTION SNEEZING, RUNNY EYES pollen extracts Allergy (Verified 05/30/17 18:32) CONGESTION SNEEZING, RUNNY EYES Home Medications: Home Meds Medication Instructions Recorded Confirmed Clonazepam [Klonopin] 1 mg PO AMHS 12/19/11 05/30/17 Albuterol Sulfate [Proair Hfa] 0.09 mg IH TID PRN 05/01/14 05/30/17 buPROPion XL [Wellbutrin XL] 450 mg PO QAM 05/01/14 05/30/17 Budesonide/Formoterol Fumarate 1 aer IH BID PRN 01/16/15 05/30/17 [Symbicort 160-4.5 Mcg Inhaler] [place] Carbonate [[place] 900 mg PO QAM 08/13/16 05/30/17 Carbonate 150MG] Quetiapine Fumarate [Quetiapine 450 mg PO HS 08/13/16 05/30/17 Fumarate ER] Ranitidine HCl 300 mg PO HS 04/08/17 05/30/17 Review of Systems - Physician Review All systems were reviewed & negative as marked: Yes - Review of Systems Constitutional: Normal Eyes: Normal ENT: Normal Respiratory: Normal Cardiovascular: Normal Gastrointestinal: Normal Genitourinary Female: Normal Musculoskeletal: Arthralgias (Left foot) Skin: Normal Neurological: Normal Endocrine: Normal Hemo/Lymphatic: Normal Psychiatric: Normal Physical Exam Vital Signs Reviewed: Yes Vital Signs Temp Pulse Resp BP Pulse Ox 06/12/17 15:18 98.4 F 80 16 110/64 97 Temperature: Afebrile Blood Pressure: Normal Pulse: Regular Respiratory Rate: Normal Appearance: Positive for: Well-Appearing, Non-Toxic, Comfortable Pain Distress: None Mental Status: Positive for: Alert and Oriented X 3 - Systems Exam Head: Present: Atraumatic, Normocephalic Pupils: Present: PERRL Extroacular Muscles: Present: EOMI Conjunctiva: Present: Normal Mouth: Present: Moist Mucous Membranes Neck: Present: Normal Range of Motion Respiratory/Chest: Present: Clear to Auscultation, Good Air Exchange. No: Respiratory Distress, Accessory Muscle Use Cardiovascular: Present: Regular Rate and Rhythm, Normal S1, S2. No: Murmurs Abdomen: Present: Normal Bowel Sounds. No: Tenderness, Distention, Peritoneal Signs Back: Present: Normal Inspection Upper Extremity: Present: Normal Inspection. No: Cyanosis, Edema Lower Extremity: Present: Normal Inspection, NORMAL PULSES, Normal ROM, Tenderness (Left dorsal foot), Erythema (Mild erythema of left dorsal foot), Temperature Abnormalties (Warmth to touch), Neurovascularly Intact, Other ( Healed incision noted on left dorsal foot). No: Edema, CALF TENDERNESS, Paul' s Sign Neurological: Present: GCS=15, CN II-XII Intact, Speech Normal Skin: Present: Warm, Dry, Normal Color. No: Rashes Psychiatric: Present: Alert, Oriented x 3, Normal Insight, Normal Concentration Medical Decision Making ED Course and Treatment: 06/12/17 20:18 Pt is afebrile and in no distress in ED. She was stable for oral abx and DC Case was DW Dr. duffy and he agreed with the plan. He will see pt on Thursday in his office. Plan was DW the pt. Advised to return to ED for worsening symptoms, fever. - Medication Orders Current Medication Orders: Discontinued Medications Cephalexin Monohydrate (Keflex) 500 mg PO STAT STA PRN Reason: Protocol Stop: 06/12/17 15:26 Last Admin: 06/12/17 15:46 Dose: 500 mg Oxycodone/Acetaminophen (Percocet 5/325 Mg Tab) 1 tab PO STAT STA Stop: 06/12/17 15:26 Last Admin: 06/12/17 15:42 Dose: 1 tab [facility] Pain Assessment Document 06/12/17 15:42 MS (Rec: 06/12/17 15:43 MS [id number]) Pain Reassessment Is this a pain reassessment? No Sleep Is patient sleeping during reassessment? No Presence of Pain Presence of Pain Yes Pain Scale Used Pain Scale Used Numeric Location Left, Right or Bilateral Right Pain Location Body Site Foot Description Description Constant Intensity of Pain at present 8 Trimethoprim/Sulfamethoxazole (Bactrim Ds Tab) 1 tab PO STAT STA PRN Reason: Protocol Stop: 06/12/17 15:29 Last Admin: 06/12/17 15:43 Dose: 1 tab Disposition/Present on Arrival - Present on Arrival Any Indicators Present on Arrival: No History of DVT/PE: No History of Uncontrolled Diabetes: No Urinary Catheter: No History of Decub. Ulcer: No History Surgical Site Infection Following: None - Disposition Have Diagnosis and Disposition been Completed?: Yes Diagnosis: Cellulitis of foot Disposition: HOME/ ROUTINE Disposition Time: 15:45 Patient Plan: Discharge Condition: STABLE Discharge Instructions (ExitCare): Cellulitis (Skin Infection), Adult (DC), Cellulitis (ED) Additional Instructions: Take medication as directed Follow up with your primary Doctor on Thursday return to ED for any new or worsening symptoms Prescriptions: Cephalexin [Keflex] 500 mg PO TID #30 capsule Sulfamethoxazole/Trimethoprim [Bactrim DS 800 mg-160 mg] 1 tab PO BID #20 tab traMADol [Ultram] 50 mg PO TID #10 tab Referrals: Agusto Luo, [Primary Care Provider] - Follow up with primary Forms: [employer] (Guyanese)
[2017-06-12 15:41] VITALS: BP 110/64; PULSE 80; RESP 16; TEMP 98.4; O2SAT 97; BMI 25.0
== END 2017-06-12 16:19 | disposition home or self-care (01) ==
LOC: ED 14:55
DX: L03.116 Cellulitis of left lower limb (principal); Z87.891 Personal history of nicotine dependence

== ENCOUNTER 2017-09-23 18:18 | Emergency (ER) | payer MEDICARE, MEDICAID, OTHER ==
[2017-09-23 18:20] VITALS: BMI 24.3
[2017-09-23 18:32] VITALS: RESP 18
[2017-09-23 18:45] LABS: BASO # 0.07 K/mm3 (0.0-2.0); EOS # 0.3 (0.0-0.7); EOS % 4.3 % (1.5-5.0); GRAN # 3.83 (1.4-6.5); GRAN % 52.6 % (50.0-68.0); HEMOGLOBIN 12.5 g/dL (12.0-16.0); LYMPH # 2.7 (1.2-3.4); LYMPH % 37.6 % (22.0-35.0); MEAN CELL VOLUME 95.7 fl (80.0-105.0); MEAN CORPUSCULAR HEMOGLOBIN 31.6 pg (25.0-35.0); MEAN PLATELET VOLUME 8.7 fl (7.0-11.0); MONO # 0.3 (0.1-0.6); MONO % 4.5 % (1.0-6.0); RBC 3.96 10^6/uL (3.5-6.1); RED CELL DISTRIBUTION WIDTH 13.5 % (11.5-14.5); WHITE BLOOD COUNT 7.3 10^3/ul (4.5-11.0)
[2017-09-23 18:51] LABS: ALB/GLOB RATIO 1.6 (1.1-1.8); ALBUMIN 4.1 g/dL (3.0-4.8); ALT/SGPT 31 U/L (7-56); AST/SGOT 33 U/L (14-36); BLOOD UREA NITROGEN 11 mg/dL (7-21); CALCIUM 9.3 mg/dL (8.4-10.5); GFR AFRICAN-AMERICAN > 60; GFR NON-AFRICAN AMERICAN > 60
--- NOTE | 2017-09-23 18:56 | RAD ---
Date of service: 09/23/2017 HISTORY: r/o infiltrate COMPARISON: Chest radiograph dated 05/30/2017. FINDINGS: LUNGS: No active pulmonary disease. PLEURA: No significant pleural effusion identified, no pneumothorax apparent. CARDIOVASCULAR: Normal. OSSEOUS STRUCTURES: Unchanged. VISUALIZED UPPER ABDOMEN: Normal. OTHER FINDINGS: None. IMPRESSION: No active disease.
--- NOTE | 2017-09-23 19:00 | ED PDOC ---
Arrival/HPI - General Chief Complaint: Chest Pain Time Seen by Provider: 09/23/17 18:23 Past Medical History - Infectious Disease Hx of Infectious Diseases: None - Tetanus Immunization Tetanus Immunization: Unknown - Reproductive Menopause: Yes - Past Medical History Past Medical History: No Previous - Cardiac Hx Heart Murmur: Yes Hx Pacemaker: No - Pulmonary Hx Respiratory Disorders: Yes (SMOKED CIGARETTES/PPD QUIT,PLEURISY,PE [id number]) Hx Pulmonary Embolism: Yes - Neurological Hx Neurological Disorder: No - HEENT Hx HEENT Disorder: No - Renal Hx Renal Disorder: No - Endocrine/Metabolic Hx Endocrine Disorders: No - Hematological/Oncological Hx Blood Disorders: No - Integumentary Hx Dermatological Disorder: No - Musculoskeletal/Rheumatological Hx Musculoskeletal Disorders: Yes (HAMMERTOE,RIGHT FOOT SX-BUNIONECTOMY) Hx Falls: No - Gastrointestinal Hx Gastrointestinal Disorders: Yes Hx Gall Bladder Disease: Yes - Genitourinary/Gynecological Hx Genitourinary Disorders: Yes - Psychiatric Hx Bipolar Disorder: Yes Hx Emotional Abuse: No Hx Physical Abuse: No Hx Substance Use: No - Surgical History Other/Comment: LEFT OOPHORECTOMY, BREAST CYST REMOVED, TONSILLECTOMY - Anesthesia Hx Anesthesia: Yes Hx Anesthesia Reactions: No Hx Malignant Hyperthermia: No - Suicidal Assessment Feels Threatened In Home Enviroment: No Family/Social History Smoking Status: Heavy Smoker > 10 Cigarettes Daily Hx Alcohol Use: Yes (H/O SOBER SINCE 2008) Hx Substance Use: No Hx Substance Use Treatment: No Allergies/Home Meds Allergies/Adverse Reactions: Allergies prednisone Allergy (Severe, Verified 09/23/17 18:35) "I GET VIOLENT" grass pollen Allergy (Verified 09/23/17 18:35) CONGESTION SNEEZING, RUNNY EYES pollen extracts Allergy (Verified 09/23/17 18:35) CONGESTION SNEEZING, RUNNY EYES Home Medications: Home Meds Medication Instructions Recorded Confirmed Clonazepam [Klonopin] 1 mg PO AMHS 12/19/11 09/23/17 Albuterol Sulfate [Proair Hfa] 0.09 mg IH TID PRN 05/01/14 09/23/17 buPROPion XL [Wellbutrin XL] 450 mg PO QAM 05/01/14 09/23/17 Budesonide/Formoterol Fumarate 1 aer IH BID PRN 01/16/15 09/23/17 [Symbicort 160-4.5 Mcg Inhaler] [place] Carbonate [[place] 900 mg PO QAM 08/13/16 09/23/17 Carbonate 150MG] Quetiapine Fumarate [Quetiapine 450 mg PO HS 08/13/16 09/23/17 Fumarate ER] Ranitidine HCl 300 mg PO HS 04/08/17 09/23/17 Physical Exam Vital Signs Temp Pulse Resp BP Pulse Ox 09/23/17 18:32 98 F 76 18 141/78 95 Medical Decision Making ED Course and Treatment: 09/23/17 18:26 Impression: 52 year old female with . Plan: -- EKG -- Angio Chest CT -- Chest X-ray -- Labs -- Urinalysis -- Reassess and disposition Prior Visits: Notes and results from previous visits were reviewed. Patient was last seen here in the emergency department on 06/12/2017 for swelling and pain to left foot. Patient was discharged home. Progress Notes: 09/23/2017 18:54 Chest X-ray IMPRESSION: No active disease. Dictator: Chris Hoover MD - Lab Interpretations Lab Results: 09/23/17 18:36 09/23/17 18:36 Lab Results 09/23/17 18:36: Sodium 143, Potassium 3.9, Chloride 106, Carbon Dioxide 28, Anion Gap 13, BUN 11, Creatinine 0.9, Est GFR ( Amer) > 60, Est GFR (Non- Af Amer) > 60, Random Glucose 85, Calcium 9.3, Magnesium 2.2, Total Bilirubin 0.2, AST 33, ALT 31, Alkaline Phosphatase 59, Lactate Dehydrogenase 284 L, Total Creatine Kinase 109, Troponin I Pending, Total Protein 6.7, Albumin 4.1, Globulin 2.5, Albumin/Globulin Ratio 1.6 09/23/17 18:36: WBC 7.3 D, RBC 3.96, Hgb 12.5, Hct 37.9, MCV 95.7, MCH 31.6, MCHC 33.0, RDW 13.5, Plt Count 432, MPV 8.7, Gran % 52.6, Lymph % (Auto) 37.6 H , [place] % (Auto) 4.5, Eos % (Auto) 4.3, Baso % (Auto) 1.0, Gran # 3.83, Lymph # ( Auto) 2.7, [place] # (Auto) 0.3, Eos # (Auto) 0.3, Baso # (Auto) 0.07 I have reviewed the lab results: Yes - RAD Interpretation Radiology Orders: 09/23/17 18:26 CHEST PORTABLE [RAD] Stat 09/23/17 18:27 ANGIO CHEST PE PROTOCOL [CT] Stat Disposition/Present on Arrival - Present on Arrival History of DVT/PE: No History of Uncontrolled Diabetes: No Urinary Catheter: No History of Decub. Ulcer: No History Surgical Site Infection Following: None - Disposition Referrals: Bennie Hammond MD [Primary Care Provider] - Follow up with primary
[2017-09-23 19:02] LABS: TROPONIN I < 0.01 ng/mL
[2017-09-23 19:13] LABS: PH,URINE 8.5 (4.7-8.0); URINE BILIRUBIN NEGATIVE (NEGATIVE); URINE BLOOD NEGATIVE (NEGATIVE); URINE GLUCOSE (UA) NEGATIVE (NEGATIVE); URINE LEUKOCYTE ESTERASE NEGATIVE Leu/uL (NEGATIVE); URINE PROTEIN NEGATIVE mg/dL (<30 mg/dL); URINE UROBILINOGEN 0.2 E.U./dL (<1 E.U./dL)
[2017-09-23 19:26] LABS: URINE APPEARANCE CLEAR (CLEAR); URINE COLOR YELLOW (YELLOW)
[2017-09-23 20:25] VITALS: O2SAT 96
[2017-09-23 20:42] VITALS: BP 110/80; PULSE 72; TEMP 98
--- NOTE | 2017-09-23 21:39 | ED PDOC ---
Arrival/HPI - General Chief Complaint: Chest Pain Time Seen by Provider: 09/23/17 18:23 Historian: Patient - History of Present Illness Narrative History of Present Illness (Text): 09/23/17 18:23 A 52 year old female, whose past medical history includes pulmonary embolism on Eliquis, presents to the emergency department complaining of sharp chest pain for 2 days. Patient reports she is compliant on all of her medications. Patient denies nay shortness of breath, fever, cough, or any other complaints at this time. PMD: Dr. Mike Hammond Time/Duration: < week (2 days) Symptom Onset: Sudden Symptom Course: Unchanged Quality: Other (sharp) Past Medical History - Provider Review Nursing Documentation Reviewed: Yes - Infectious Disease Hx of Infectious Diseases: None - Tetanus Immunization Tetanus Immunization: Unknown - Reproductive Menopause: Yes - Past Medical History Past Medical History: No Previous - Cardiac Hx Heart Murmur: Yes Hx Pacemaker: No - Pulmonary Hx Respiratory Disorders: Yes (SMOKED CIGARETTES/PPD QUIT,PLEURISY,PE 05-30-) Hx Pulmonary Embolism: Yes - Neurological Hx Neurological Disorder: No - HEENT Hx HEENT Disorder: No - Renal Hx Renal Disorder: No - Endocrine/Metabolic Hx Endocrine Disorders: No - Hematological/Oncological Hx Blood Disorders: No - Integumentary Hx Dermatological Disorder: No - Musculoskeletal/Rheumatological Hx Musculoskeletal Disorders: Yes (HAMMERTOE,RIGHT FOOT SX-BUNIONECTOMY) Hx Falls: No - Gastrointestinal Hx Gastrointestinal Disorders: Yes Hx Gall Bladder Disease: Yes - Genitourinary/Gynecological Hx Genitourinary Disorders: Yes - Psychiatric Hx Bipolar Disorder: Yes Hx Emotional Abuse: No Hx Physical Abuse: No Hx Substance Use: No - Surgical History Other/Comment: LEFT OOPHORECTOMY, BREAST CYST REMOVED, TONSILLECTOMY - Anesthesia Hx Anesthesia: Yes Hx Anesthesia Reactions: No Hx Malignant Hyperthermia: No - Suicidal Assessment Feels Threatened In Home Enviroment: No Family/Social History - Physician Review Nursing Documentation Reviewed: Yes Family/Social History: No Known Family HX Smoking Status: Heavy Smoker > 10 Cigarettes Daily Hx Alcohol Use: Yes (H/O SOBER SINCE 2008) Hx Substance Use: No Hx Substance Use Treatment: No Allergies/Home Meds Allergies/Adverse Reactions: Allergies prednisone Allergy (Severe, Verified 09/23/17 18:35) "I GET VIOLENT" grass pollen Allergy (Verified 09/23/17 18:35) CONGESTION SNEEZING, RUNNY EYES pollen extracts Allergy (Verified 09/23/17 18:35) CONGESTION SNEEZING, RUNNY EYES Home Medications: Home Meds Medication Instructions Recorded Confirmed Clonazepam [Klonopin] 1 mg PO AMHS 12/19/11 09/23/17 Albuterol Sulfate [Proair Hfa] 0.09 mg IH TID PRN 05/01/14 09/23/17 buPROPion XL [Wellbutrin XL] 450 mg PO QAM 05/01/14 09/23/17 Budesonide/Formoterol Fumarate 1 aer IH BID PRN 01/16/15 09/23/17 [Symbicort 160-4.5 Mcg Inhaler] [place] Carbonate [[place] 900 mg PO QAM 08/13/16 09/23/17 Carbonate 150MG] Quetiapine Fumarate [Quetiapine 450 mg PO HS 08/13/16 09/23/17 Fumarate ER] Ranitidine HCl 300 mg PO HS 04/08/17 09/23/17 Review of Systems - Physician Review All systems were reviewed & negative as marked: Yes - Review of Systems Constitutional: absent: Fevers Respiratory: absent: SOB, Cough Cardiovascular: Chest Pain Physical Exam Vital Signs Reviewed: Yes Vital Signs Temp Pulse Resp BP Pulse Ox 09/23/17 20:41 98.0 F 72 18 110/80 96 09/23/17 20:24 76 18 107/71 96 09/23/17 18:32 98 F 76 18 141/78 95 Temperature: Afebrile Blood Pressure: Normal Pulse: Regular Respiratory Rate: Normal Appearance: Positive for: Well-Appearing, Non-Toxic, Comfortable Pain Distress: None Mental Status: Positive for: Alert and Oriented X 3 - Systems Exam Head: Present: Atraumatic, Normocephalic Mouth: Present: Moist Mucous Membranes Respiratory/Chest: Present: Clear to Auscultation, Good Air Exchange, Tender to Palpation (left chest wall). No: Respiratory Distress, Accessory Muscle Use Cardiovascular: Present: Regular Rate and Rhythm, Normal S1, S2. No: Murmurs Abdomen: No: Tenderness, Distention, Peritoneal Signs Upper Extremity: Present: Normal Inspection. No: Cyanosis, Edema Lower Extremity: Present: Normal Inspection. No: Edema Neurological: Present: GCS=15, CN II-XII Intact, Speech Normal Skin: Present: Warm, Dry, Normal Color. No: Rashes Psychiatric: Present: Alert, Oriented x 3, Normal Insight, Normal Concentration Medical Decision Making ED Course and Treatment: 09/23/17 18:26 Impression: 52 year old female with sharp chest pain. Physical examination shows left chest wall tenderness to palpation; no other acute findings upon examination. Plan: -- EKG -- Angio Chest CT -- Chest X-ray -- Labs -- Flexeril -- Toradol -- UA -- Reassess and disposition Progress Notes: EKG: Ordered, reviewed, and independently interpreted the EKG. Rate : 76 BPM Rhythm : NSR Interpretation : No ST-segment elevations or depressions, no T-wave inversions, normal intervals. Comparison : No previous EKG for comparison. 09/23/2017 18:54 Chest X-ray IMPRESSION: No active disease. Dictator: Chris Hoover MD Case discussed with Dr. Hammond, who states to have patient discharged to and instructed to follow-up with him tomorrow morning. 09/23/2017 20:[address] IMPRESSION: No PE or dissection. No acute process is present in the chest. Stable right thyroid lobe nodule. ACR White Paper guidelines (Vasques JK, et al. JACR 2015;12(2):143-50) suggest further evaluation with thyroid ultrasound. Dictator: Bartolo Payan MD - Lab Interpretations Lab Results: 09/23/17 18:36 09/23/17 18:36 Lab Results 09/23/17 18:56: Urine Color Yellow, Urine Appearance Clear, Urine pH 8.5, Ur Specific [place] 1.010, Urine Protein Negative, Urine Glucose (UA) Negative, Urine Ketones Negative, Urine Blood Negative, Urine Nitrate Negative, Urine Bilirubin Negative, Urine Urobilinogen 0.2, Ur Leukocyte Esterase Negative 09/23/17 18:36: Sodium 143, Potassium 3.9, Chloride 106, Carbon Dioxide 28, Anion Gap 13, BUN 11, Creatinine 0.9, Est GFR ( Amer) > 60, Est GFR (Non- Af Amer) > 60, Random Glucose 85, Calcium 9.3, Magnesium 2.2, Total Bilirubin 0.2, AST 33, ALT 31, Alkaline Phosphatase 59, Lactate Dehydrogenase 284 L, Total Creatine Kinase 109, Troponin I < 0.01, Total Protein 6.7, Albumin 4.1, Globulin 2.5, Albumin/Globulin Ratio 1.6 09/23/17 18:36: WBC 7.3 D, RBC 3.96, Hgb 12.5, Hct 37.9, MCV 95.7, MCH 31.6, MCHC 33.0, RDW 13.5, Plt Count 432, MPV 8.7, Gran % 52.6, Lymph % (Auto) 37.6 H , [place] % (Auto) 4.5, Eos % (Auto) 4.3, Baso % (Auto) 1.0, Gran # 3.83, Lymph # ( Auto) 2.7, [place] # (Auto) 0.3, Eos # (Auto) 0.3, Baso # (Auto) 0.07 I have reviewed the lab results: Yes - RAD Interpretation Radiology Orders: 09/23/17 18:26 CHEST PORTABLE [RAD] Stat 09/23/17 18:27 ANGIO CHEST PE PROTOCOL [CT] Stat - Medication Orders Current Medication Orders: Discontinued Medications Cyclobenzaprine HCl (Flexeril) 10 mg PO STAT STA Stop: 09/23/17 19:04 Last Admin: 09/23/17 19:16 Dose: 10 mg Ketorolac Tromethamine (Toradol) 30 mg IVP STAT STA Stop: 09/23/17 19:04 Last Admin: 09/23/17 19:17 Dose: 30 mg MAR Pain Assessment Document 09/23/17 19:17 IT (Rec: 09/23/17 19:17 IT [id number]) Pain Reassessment Is this a pain reassessment? No Sleep Is patient sleeping during reassessment? No Presence of Pain Presence of Pain Yes IVP Administration Document 09/23/17 19:17 IT (Rec: 09/23/17 19:17 IT [id number]) Charges for Administration # of IVP Administrations 1 - Scribe Statement The provider has reviewed the documentation as recorded by the Gabriela Delgado Provider Scribe Provider Scribe Attestation: All medical record entries made by the Scribe were at my direction and personally dictated by me. I have reviewed the chart and agree that the record accurately reflects my personal performance of the history, physical exam, medical decision making, and the department course for this patient. I have also personally directed, reviewed, and agree with the discharge instructions and disposition. Disposition/Present on Arrival - Present on Arrival Any Indicators Present on Arrival: No History of DVT/PE: No History of Uncontrolled Diabetes: No Urinary Catheter: No History of Decub. Ulcer: No History Surgical Site Infection Following: None - Disposition Have Diagnosis and Disposition been Completed?: Yes Diagnosis: Non-cardiac chest pain Disposition: HOME/ ROUTINE Disposition Time: 21:00 Condition: GOOD Discharge Instructions (ExitCare): Chest Pain That Is Not Caused by the Heart ( DC), Chest Pain (ED) Additional Instructions: CATA MIXON, thank you for letting us take care of you today. The emergency medical care you received today was directed at your acute symptoms. If you were prescribed any medication, please fill it and take as directed. It may take several days for your symptoms to resolve. Return to the Emergency Department if your symptoms worsen, do not improve, or if you have any other problems. Please contact your doctor or call one of the physicians/clinics you have been referred to that are listed on the Patient Visit Information form that is included in your discharge packet. Bring any paperwork you were given at discharge with you along with any medications you are taking to your follow up visit. Our treatment cannot replace ongoing medical care by a primary care provider outside of the emergency department. Thank you for allowing the [facility] team to be part of your care today. Follow up with Dr. Hammond tomorrow for re-evaluation and further management. Prescriptions: Cyclobenzaprine [Cyclobenzaprine HCl] 10 mg PO Q8 PRN #20 tab PRN Reason: Muscle Spasm Ibuprofen [Motrin] 600 mg PO Q6 PRN #20 tab PRN Reason: Pain, Moderate (4-7) Referrals: Bennie Hammond MD [Primary Care Provider] - Follow up with primary Forms: HIGH MOBILITY (Bulgarian)
--- NOTE | 2017-09-24 09:00 | CT ---
Date of service: 09/23/2017 PROCEDURE: CT Chest with contrast (Pulmonary Angiogram) HISTORY: chest pain - h/o PE COMPARISON: None available. TECHNIQUE: Axial computed tomography images were obtained of the chest in the pulmonary arterial phase of enhancement. Coronal and sagittal reformatted images were created and reviewed. Intravenous contrast dose: 150 cc of Omni 350 Radiation dose: Total exam DLP = 456 mGy-cm. This CT exam was performed using one or more of the following dose reduction techniques: Automated exposure control, adjustment of the mA and/or kV according to patient size, and/or use of iterative reconstruction technique. FINDINGS: PULMONARY ARTERIES: Unremarkable. No pulmonary embolism. AORTA: No acute findings. No thoracic aortic aneurysm. LUNGS: Unremarkable. No nodule, mass or pulmonary consolidation. PLEURAL SPACES: Unremarkable. No effusion or pneuomothorax. HEART: Unremarkable. No cardiomegaly. No significant pericardial effusion. LYMPH NODES: No lymphadenopathy. BONES, CHEST WALL: Unremarkable. No fracture or destructive lesion OTHER FINDINGS: The report concurs with the preliminary [facility] report IMPRESSION: Unremarkable CT pulmonary angiogram. No pulmonary embolus.
--- NOTE | 2017-09-24 22:16 | CARD ---
APPROVED REPORT Date of service: 09/23/2017 EKG Measurement Heart [id number] <Conclusion> Normal sinus rhythm Normal ECG
== END 2017-09-23 20:42 | disposition home or self-care (01) ==
LOC: ED 18:18
DX: R07.89 Other chest pain (principal); F17.210 Nicotine dependence, cigarettes, uncomplicated
CPT/HCPCS: 71045; 71275; 80053; 81003; 82550; 83615; 83735; 84484; 85025; 93005; 96374; 99284; J1885; Q9967

== ENCOUNTER 2018-04-12 08:39 | Outpatient (CLI) | payer MEDICARE, MEDICAID | END 2018-04-12 08:40 | disposition home or self-care (01) | LOC: LAB 08:39 | DX: Z86.711 Personal history of pulmonary embolism (principal); Z01.810 Encounter for preprocedural cardiovascular examination; Z01.812 Encounter for preprocedural laboratory examination; Z01.811 Encounter for preprocedural respiratory examination ==